=== PATIENT | male | born 1960 | race Caucasian/White ===

== ENCOUNTER → 2016-11-11 | Outpatient (REF) | payer OTHER ==
[2016-11-11 12:32] LABS: ALBUMIN/GLOBULIN RATIO 1.38 (1.00-1.93); ALKALINE PHOSPHATASE 79 U/L (45-117); ALT/SGPT 47 U/L (12-78); ANION GAP 8 MEQ/L (8-16); AST/SGOT 23 U/L (15-37); BILIRUBIN,TOTAL 0.7 MG/DL (0.2-1.0); BLOOD UREA NITROGEN 18 MG/DL (7-18); CALCIUM LEVEL 9.3 MG/DL (8.5-10.1); CARBON DIOXIDE LEVEL 29 MEQ/L (21-32); CHLORIDE LEVEL 105 MEQ/L (98-107); CHOLESTEROL LEVEL 176 MG/DL (<200); CREATININE FOR GFR 0.97 MG/DL (0.70-1.30); GLOMERULAR FILTRATION RATE > 60.0 (>56); GLUCOSE, FASTING 91 MG/DL (70-105); POTASSIUM SERUM 4.8 MEQ/L (3.5-5.1); SODIUM LEVEL 142 MEQ/L (136-145); TOTAL PROTEIN 6.9 GM/DL (6.4-8.2); TRIGLYCERIDES LEVEL 69 MG/DL (<150)
== END ==
LOC: M SFHCPLAZ 07:55
PROVIDERS: ATTEND Family Medicine
DX: E78.5 Hyperlipidemia, unspecified (principal); R73.01 Impaired fasting glucose

== ENCOUNTER → 2017-04-04 | Outpatient (REF) | payer OTHER ==
[2017-04-04 11:59] LABS: BASO % 0.8 % (0.0-1.0); EOS # 0.1 K/mm3 (0.0-0.50); LARGE UNSTAINED CELL # 0.1 K/mm3 (0.0-0.4); LARGE UNSTAINED CELL % 1.9 % (0.0-4.0); LYMPH # 1.3 K/mm3 (1.5-4.5); LYMPH % 31.9 % (24.0-44.0); MEAN CORPUSCULAR HEMOGLOBIN 31.3 pg (27.0-33.0); MEAN CORPUSCULAR HGB CONC 32.8 g/dl (32.0-36.5); MEAN CORPUSCULAR VOLUME 95.5 fl (80.0-96.0); MONO # 0.3 K/mm3 (0.0-0.8); MONO % 8.1 % (0.0-5.0); NEUTROPHILS # 2.2 K/mm3 (1.8-7.7); NEUTROPHILS % 55.3 % (36.0-66.0); PLATELET COUNT, AUTOMATED 299 k/mm3 (150-450); RED CELL DISTRIBUTION WIDTH 12.9 % (11.5-14.5)
[2017-04-04 12:24] LABS: ALBUMIN 3.9 GM/DL (3.2-5.2); ALKALINE PHOSPHATASE 83 U/L (45-117); ALT/SGPT 47 U/L (12-78); ANION GAP 7 MEQ/L (8-16); AST/SGOT 24 U/L (15-37); BILIRUBIN,TOTAL 0.6 MG/DL (0.2-1.0); BLOOD UREA NITROGEN 16 MG/DL (7-18); CALCIUM LEVEL 8.8 MG/DL (8.5-10.1); CARBON DIOXIDE LEVEL 28 MEQ/L (21-32); CHLORIDE LEVEL 107 MEQ/L (98-107); CREATININE FOR GFR 0.88 MG/DL (0.70-1.30); GLOMERULAR FILTRATION RATE > 60.0 (>56); GLUCOSE, FASTING 109 MG/DL (70-105); MAGNESIUM LEVEL 2.4 MG/DL (1.8-2.4); POTASSIUM SERUM 4.7 MEQ/L (3.5-5.1); SODIUM LEVEL 142 MEQ/L (136-145); TOTAL PROTEIN 6.9 GM/DL (6.4-8.2)
== END ==
LOC: M SFHCPLAZ 08:29
PROVIDERS: ATTEND Family Medicine
DX: I10 Essential (primary) hypertension (principal); R73.01 Impaired fasting glucose; Z12.5 Encounter for screening for malignant neoplasm of prostate
CPT/HCPCS: 36415; 80053; 81001; 82043; 83036; 83735; 85025; G0103

== ENCOUNTER → 2018-01-04 | Outpatient (REF) | payer OTHER ==
[2018-01-04 12:40] LABS: BASO % 0.6 % (0.0-1.0); EOS # 0.1 10^3/uL (0.0-0.50); EOS % 1.5 % (0.0-3.0); HEMATOCRIT 42.6 % (42.0-52.0); HEMOGLOBIN 14.1 g/dl (13.5-17.5); IMMATURE GRANULOCYTE % 0.2 % (0-3.0); LYMPH # 1.5 10^3/uL (1.5-4.5); LYMPH % 29.7 % (24.0-44.0); MEAN CORPUSCULAR HEMOGLOBIN 30.5 pg (27.0-33.0); MEAN CORPUSCULAR HGB CONC 33.1 g/dl (32.0-36.5); MONO # 0.5 10^3/uL (0.0-0.8); MONO % 9.8 % (0.0-5.0); NEUTROPHILS % 58.2 % (36.0-66.0); PLATELET COUNT, AUTOMATED 304 10^3/uL (150-450); RED BLOOD COUNT 4.63 10^6/uL (4.30-6.10); RED CELL DISTRIBUTION WIDTH 12.9 % (11.5-14.5); WHITE BLOOD COUNT 5.2 10^3/uL (4.0-10.0)
[2018-01-04 12:44] LABS: HEMATOCRIT 42.6 % (42.0-52.0)
[2018-01-04 12:59] LABS: ALBUMIN 4.1 GM/DL (3.2-5.2); ALBUMIN/GLOBULIN RATIO 1.41 (1.00-1.93); ALKALINE PHOSPHATASE 71 U/L (45-117); ALT/SGPT 42 U/L (12-78); ANION GAP 7 MEQ/L (8-16); AST/SGOT 21 U/L (7-37); BILIRUBIN,TOTAL 0.7 MG/DL (0.2-1.0); BLOOD UREA NITROGEN 15 MG/DL (7-18); CARBON DIOXIDE LEVEL 28 MEQ/L (21-32); CHLORIDE LEVEL 103 MEQ/L (98-107); CREATININE FOR GFR 0.91 MG/DL (0.70-1.30); GLOMERULAR FILTRATION RATE > 60.0 (>56); GLUCOSE, FASTING 79 MG/DL (70-100); POTASSIUM SERUM 4.4 MEQ/L (3.5-5.1); SODIUM LEVEL 138 MEQ/L (136-145)
[2018-01-04 13:01] LABS: VITAMIN B12 LEVEL 531 PG/ML (247-911)
[2018-01-04 13:57] LABS: ESTIMATED AVERAGE GLUCOSE 111 MG/DL (60-110); HEMOGLOBIN A1c 5.5 %
[2018-01-06 10:59] LABS: ALBUMIN % 62.8 % (55.8-66.1); ALPHA-1-GLOBULIN % 4.1 % (2.9-4.9); ALPHA-1-GLOBULINS 0.29 GM/DL (0.17-0.41); ALPHA-2-GLOBULINS 0.71 GM/DL (0.42-0.99); ALPHA-2-GLOBULINS % 10.2 % (7.1-11.8); BETA-1-GLOBULINS 0.48 GM/DL (0.28-0.60); BETA-1-GLOBULINS % 6.8 % (4.7-7.2); BETA-2-GLOBULINS 0.41 GM/DL (0.19-0.55); BETA-2-GLOBULINS % 5.8 % (3.2-6.5); GAMMA GLOBULIN % 10.3 % (11.1-18.8); GAMMA GLOBULINS 0.72 GM/DL (0.65-1.58)
[2018-01-06 12:06] LABS: PRETREATED FOLATE FOR RBCFOL 10.6 NG/ML; RBC FOLATE 522.5 NG/ML (280-791)
== END ==
LOC: M SFHCPLAZ 09:21
DX: D75.89 Other specified diseases of blood and blood-forming organs (principal); I10 Essential (primary) hypertension; R73.01 Impaired fasting glucose
CPT/HCPCS: 83735

== ENCOUNTER 2018-03-06 07:47 | Day surgery (SDC) | payer OTHER ==
[2018-03-06] MEDS: NS 1,000 ML IV (08:00)
[2018-03-06] MEDS ORDERED: PROPOFOL 500 MG/50 ML VIAL As Ordered (10:07)
[2018-03-06] MEDS ORDERED: LIDOCAINE 2% INJ 100 MG/5 ML SDV (FOR ANES.) As Ordered (10:07)
== END 2018-03-06 10:08 | disposition home or self-care (01) ==
LOC: M OPP 07:47
DX: Z12.11 Encounter for screening for malignant neoplasm of colon (principal); K64.0 First degree hemorrhoids; K63.5 Polyp of colon; K57.30 Diverticulosis of large intestine without perforation or abscess without bleeding; I10 Essential (primary) hypertension; E78.00 Pure hypercholesterolemia, unspecified; M50.20 Other cervical disc displacement, unspecified cervical region; Z79.899 Other long term (current) drug therapy; Z88.8 Allergy status to other drugs, medicaments and biological substances
CPT/HCPCS: 45385

== ENCOUNTER → 2018-07-17 | Outpatient (REF) | payer OTHER ==
[2018-07-17 12:50] LABS: ALBUMIN 3.8 GM/DL (3.2-5.2); ALBUMIN/GLOBULIN RATIO 1.36 (1.00-1.93); ALKALINE PHOSPHATASE 68 U/L (45-117); ALT/SGPT 41 U/L (12-78); ANION GAP 6 MEQ/L (8-16); AST/SGOT 18 U/L (7-37); BILIRUBIN,TOTAL 0.6 MG/DL (0.2-1.0); BLOOD UREA NITROGEN 20 MG/DL (7-18); C REACTIVE PROTEIN QUANTITATIV < 0.30 MG/DL (0.00-0.30); CALCIUM LEVEL 8.9 MG/DL (8.8-10.2); CARBON DIOXIDE LEVEL 29 MEQ/L (21-32); CHLORIDE LEVEL 103 MEQ/L (98-107); CHOLESTEROL LEVEL 188 MG/DL (<200); CHOLESTEROL RISK RATIO 2.848 (<5); CPK CREATINE PHOSPHOKINASE 60 U/L (39-308); CREATININE FOR GFR 0.84 MG/DL (0.70-1.30); FREE T4 0.91 NG/DL (0.76-1.46); GLOMERULAR FILTRATION RATE > 60.0 (>49); GLUCOSE, FASTING 93 MG/DL (70-100); HDL CHOLESTEROL 66 MG/DL (>40); LDL CHOLESTEROL 107 MG/DL (<100); NON-HDL-C 122 MG/DL; POTASSIUM SERUM 4.7 MEQ/L (3.5-5.1); PSA SCREENING 1.2 NG/ML (< 4.0); SODIUM LEVEL 138 MEQ/L (136-145); TOTAL PROTEIN 6.6 GM/DL (6.4-8.2); TRIGLYCERIDES LEVEL 73 MG/DL (<150)
== END ==
LOC: M SFHCPLAZ 08:19
DX: E78.5 Hyperlipidemia, unspecified (principal); Z12.5 Encounter for screening for malignant neoplasm of prostate
CPT/HCPCS: 82550

== ENCOUNTER → 2018-09-08 | Outpatient (CLI) | payer OTHER ==
[~2018-09-08] MED LIST: ATOR80TA59 PO; RAMI1CAP24 PO
--- NOTE | 2018-09-08 11:23 | REP ---
MR CERVICAL SPINE WITHOUT CONTRAST: HISTORY: Radiculopathy. A small central disc protrusion is present at the C2-3 level. There is minimal effacement of the thecal sac without spinal cord compression. The C2 neural foramina are patent. A disc bulge is present at the C3-4 level. There is mild effacement of the thecal sac without spinal cord compression. Uncinate process hypertrophy is present on the right. This produces minimal narrowing of the right C3 neural foramen. The left C3 neural foramen is patent. A disc bulge is present at the C4-5 level. There is mild effacement of the thecal sac without spinal cord compression. Uncinate process hypertrophy is present on the right. This produces minimal narrowing of the right C4 neural foramen. The left C4 neural foramina is patent. A disc bulge with associated osteophyte formation is present at the C5-6 level. There is moderate effacement of the thecal sac without spinal cord compression. Bilateral uncinate process hypertrophy is present. This produces mild and moderate narrowing of the right and left C5 neural foramina respectively. A disc bulge with associated osteophyte formation is present at the C6-7 level. There is moderate effacement of the thecal sac without spinal cord compression. Bilateral uncinate process hypertrophy is present. This produces moderate narrowing of the C6 neural foramina. There is no other disc bulge or herniation. The remaining neural foramina are patent. The spinal cord is normal in signal intensity. The C4-5 and C5-6 intervertebral discs are decreased in height consistent with disc degeneration. Increased signal intensity on T2-weighted images is present in the endplates of the C5 and C6 vertebral bodies. This represents degenerative change. IMPRESSION: There is cervical spondylosis at the C2-3 through C6-7 levels without spinal cord compression. Electronically Signed by Hamzah Gerard MD 09/08/2018 11:26 A
== END ==
LOC: M RAD 07:09
PROVIDERS: ATTEND Nurse Practitioner Family
DX: M47.22 Other spondylosis with radiculopathy, cervical region (principal)

== ENCOUNTER → 2018-12-26 | Outpatient (REF) | payer OTHER ==
[2018-12-26 13:13] LABS: BASO % 0.9 % (0.0-1.0); EOS # 0.1 10^3/uL (0.0-0.50); EOS % 1.6 % (0.0-3.0); HEMATOCRIT 46.9 % (42.0-52.0); HEMOGLOBIN 15.5 g/dl (13.5-17.5); LYMPH # 1.5 10^3/uL (1.5-4.5); MEAN CORPUSCULAR HEMOGLOBIN 30.2 pg (27.0-33.0); MEAN CORPUSCULAR VOLUME 91.2 fl (80.0-96.0); MONO # 0.4 10^3/uL (0.0-0.8); MONO % 9.6 % (0.0-5.0); NEUTROPHILS # 2.5 10^3/uL (1.8-7.7); NEUTROPHILS % 54.7 % (36.0-66.0); PLATELET COUNT, AUTOMATED 340 10^3/uL (150-450); RED BLOOD COUNT 5.14 10^6/uL (4.30-6.10); WHITE BLOOD COUNT 4.5 10^3/uL (4.0-10.0)
[2018-12-26 13:26] LABS: HEMOGLOBIN A1c 5.7 %
[2018-12-26 14:25] LABS: CREATININE, URINE 87.8 MG/DL; MALB URINE SIEMENS 59.1 MG/L; MAU/CREAT RATIO 67.3 MCG/MG (0.0-30.0)
[2018-12-26 14:26] LABS: ALBUMIN 4.1 GM/DL (3.2-5.2); ALT/SGPT 45 U/L (12-78); BILIRUBIN,TOTAL 0.7 MG/DL (0.2-1.0); BLOOD UREA NITROGEN 22 MG/DL (7-18); CARBON DIOXIDE LEVEL 27 MEQ/L (21-32); CHLORIDE LEVEL 104 MEQ/L (98-107); CREATININE FOR GFR 0.95 MG/DL (0.70-1.30); GLOMERULAR FILTRATION RATE > 60.0 (>49); GLUCOSE, FASTING 86 MG/DL (70-100); POTASSIUM SERUM 4.5 MEQ/L (3.5-5.1); SODIUM LEVEL 139 MEQ/L (136-145); TOTAL PROTEIN 7.5 GM/DL (6.4-8.2); URIC ACID 6.5 MG/DL (3.5-7.2)
[2018-12-26 14:34] LABS: APPEARANCE, URINE CLEAR (CLEAR); BACTERIA, URINE AUTO NEGATIVE (NEGATIVE); BILIRUBIN, URINE AUTO NEGATIVE (NEGATIVE); BLOOD, URINE BLOOD NEGATIVE (NEGATIVE); COLOR, URINE YELLOW (YELLOW); GLUCOSE, URINE (UA) AUTO NEGATIVE (NEGATIVE); KETONE, URINE AUTO NEGATIVE (NEGATIVE); LEUKOCYTE ESTERASE, URINE AUTO NEGATIVE (NEGATIVE); MUCUS, URINE SMALL (NEGATIVE); NITRITE, URINE AUTO NEGATIVE (NEGATIVE); PROTEIN, URINE AUTO NEGATIVE (NEGATIVE); RBC, URINE AUTO 0 /HPF (0-3); SPECIFIC GRAVITY URINE AUTO 1.015 (1.002-1.035); SQUAMOUS EPITHELIAL CELL UR AU 0 /HPF (0-6); UROBILINOGEN, URINE AUTO 0.2 mg/dL (0.0-2.0); WBC, URINE AUTO 0 /HPF (0-3)
== END ==
LOC: M SFHCPLAZ 09:51
PROVIDERS: ATTEND Family Medicine
DX: D75.89 Other specified diseases of blood and blood-forming organs (principal); R73.01 Impaired fasting glucose; M19.079 Primary osteoarthritis, unspecified ankle and foot
CPT/HCPCS: 80053; 81001; 82043; 83036; 83525; 84550; 85025; G0463

== ENCOUNTER → 2019-07-12 | Outpatient (REF) | payer OTHER ==
[2019-07-12 12:06] LABS: ALBUMIN 3.7 GM/DL (3.2-5.2); ALT/SGPT 35 U/L (12-78); BILIRUBIN,TOTAL 0.5 MG/DL (0.2-1.0); BLOOD UREA NITROGEN 13 MG/DL (7-18); CALCIUM LEVEL 8.9 MG/DL (8.8-10.2); CARBON DIOXIDE LEVEL 28 MEQ/L (21-32); CHLORIDE LEVEL 108 MEQ/L (98-107); CHOLESTEROL LEVEL 185 MG/DL (<200); CREATININE FOR GFR 0.91 MG/DL (0.70-1.30); GLOMERULAR FILTRATION RATE > 60.0 (>49); GLUCOSE, FASTING 94 MG/DL (70-100); HDL CHOLESTEROL 64 MG/DL (>40); LDL CHOLESTEROL 113 MG/DL (<100); NON-HDL-C 121 MG/DL; POTASSIUM SERUM 4.7 MEQ/L (3.5-5.1); SODIUM LEVEL 143 MEQ/L (136-145); TOTAL PROTEIN 6.7 GM/DL (6.4-8.2); TRIGLYCERIDES LEVEL 40 MG/DL (<150)
[2019-07-12 12:39] LABS: TOTAL PROTEIN,RANDOM URINE 19.7 MG/DL (0.0-12.0)
[2019-07-12 13:23] LABS: TOTAL 25(OH) VITAMIN D 38.5 NG/ML (30.0-100.0)
[2019-07-12 13:36] LABS: PTH INTACT 66.7 PG/ML (18.5-88.0)
[2019-07-12 14:09] LABS: HEMOGLOBIN A1c 5.6 %
== END ==
LOC: M SFHCPLAZ 09:06
PROVIDERS: ATTEND Family Medicine
DX: Z12.5 Encounter for screening for malignant neoplasm of prostate (principal); E55.9 Vitamin D deficiency, unspecified; R73.01 Impaired fasting glucose; E78.5 Hyperlipidemia, unspecified
CPT/HCPCS: 36415; 80053; 80061; 82306; 82570; 83036; 83970; 84156; 90471; 90682; G0103; G0463

== ENCOUNTER → 2019-10-25 | Outpatient (REF) | payer OTHER ==
[~2019-10-25] MED LIST changes: +VITAD1000T PO
[2019-10-25 14:33] LABS: ALBUMIN 4.3 GM/DL (3.2-5.2); ALT/SGPT 51 U/L (12-78); BASO # 0.1 10^3/uL (0.0-0.2); BASO % 0.9 % (0.0-1.0); BILIRUBIN,TOTAL 0.5 MG/DL (0.2-1.0); BLOOD UREA NITROGEN 19 MG/DL (7-18); CALCIUM LEVEL 9.5 MG/DL (8.8-10.2); CARBON DIOXIDE LEVEL 31 MEQ/L (21-32); CHLORIDE LEVEL 106 MEQ/L (98-107); CREATININE FOR GFR 0.91 MG/DL (0.70-1.30); EOS # 0.1 10^3/uL (0.0-0.5); EOS % 1.2 % (0.0-3.0); GLOMERULAR FILTRATION RATE > 60.0 (>49); GLUCOSE, FASTING 93 MG/DL (70-100); HEMATOCRIT 49.6 % (42.0-52.0); HEMOGLOBIN 16.2 g/dl (13.5-17.5); LYMPH # 1.9 10^3/uL (1.5-5.0); LYMPH % 26.8 % (24.0-44.0); MEAN CORPUSCULAR HEMOGLOBIN 30.2 pg (27.0-33.0); MEAN CORPUSCULAR HGB CONC 32.7 g/dl (32.0-36.5); MEAN CORPUSCULAR VOLUME 92.5 fl (80.0-96.0); MONO # 0.6 10^3/uL (0.0-0.8); MONO % 8.5 % (0.0-5.0); NEUTROPHILS # 4.3 10^3/uL (1.5-8.5); NEUTROPHILS % 62.3 % (36.0-66.0); PLATELET COUNT, AUTOMATED 370 10^3/uL (150-450); POTASSIUM SERUM 5.1 MEQ/L (3.5-5.1); RED BLOOD COUNT 5.36 10^6/uL (4.30-6.10); SODIUM LEVEL 140 MEQ/L (136-145); TOTAL PROTEIN 7.6 GM/DL (6.4-8.2); WHITE BLOOD COUNT 6.9 10^3/uL (4.0-10.0)
[2019-10-25 14:40] LABS: PARTIAL THROMBOPLASTIN TIME 25.2 SECONDS (25.0-38.4); PROTHROMBIN TIME 12.9 SECONDS (11.8-14.0)
== END ==
LOC: M SFHCPLAZ 12:34
PROVIDERS: ATTEND Family Medicine
DX: Z01.818 Encounter for other preprocedural examination (principal); I10 Essential (primary) hypertension
CPT/HCPCS: 80053; 85025; 85610; 85730; G0463

== ENCOUNTER 2019-10-29 09:14 | Day surgery (SDC) | payer OTHER ==
[~2019-10-29] VITALS: Ht 175.3 cm; Wt 100.2 kg
[~2019-10-29 09:14] MED LIST changes: +LIDOCAINE 2% INJ 100 MG/5 ML SDV (FOR ANES.) As Ordered ONE; +LR 1,000 ML IV ONE; +MIDAZOLAM INJ 2 MG/2 ML VIAL (J2250) As Ordered ONE; +ONDANSETRON 4MG/2ML VIAL (J2405) As Ordered ONE; +ROCURONIUM BROMIDE 50 MG/5 ML VIAL As Ordered ONE; +ceFAZolin SOD 2 GM in IV 1 EA IV ONE; +dexameTHASONE 4 MG/ML 1ML VIAL (J1100) As Ordered ONE; +fentaNYL 100 MCG/2 ML INJECTION (J3010) As Ordered ONE; +propofoL 200 MG/20 ML VIAL As Ordered ONE
[2019-10-29] MEDS ORDERED: ROPIvacaine 0.5% 30 ML INJECTION (J2795 PER 1MG) ONE (09:15)
[2019-10-29] MEDS ORDERED: dexameTHASONE 10 MG/1 ML VIAL PRES.FREE (J1100) ONE (09:15)
[2019-10-29] MEDS ORDERED: LIDOCAINE 1% MDV 20ML VIAL ONE (09:15)
[2019-10-29] MEDS ORDERED: BUPIVACAINE HCL 0.5% 30 ML VIAL As Ordered ONE (13:10)
[2019-10-29] MEDS ORDERED: fentaNYL 100 MCG/2 ML INJECTION (J3010) As Ordered ONE ×3 (13:26→17:19)
[2019-10-29] MEDS ORDERED: MIDAZOLAM INJ 2 MG/2 ML VIAL (J2250) As Ordered ONE (13:26)
[2019-10-29] MEDS ORDERED: ESMOLOL INJ 100MG/10ML VIAL As Ordered ONE (13:46)
[2019-10-29] MEDS ORDERED: MIDAZOLAM INJ 2 MG/2 ML VIAL (J2250) IV ONE (14:00)
[2019-10-29] MEDS ORDERED: fentaNYL 100 MCG/2 ML INJECTION (J3010) IV ONE (14:00)
[2019-10-29] MEDS ORDERED: PHENYLephrine HCL 500 MCG/5 ML (100MCG/ML) SYRINGE (J2370) As Ordered ONE (15:58)
[2019-10-29] MEDS ORDERED: SUGAMMADEX SODIUM 500 MG/5 ML VIAL (BRIDION) As Ordered ONE (16:01)
[2019-10-29] MEDS ORDERED: ROCURONIUM BROMIDE 50 MG/5 ML VIAL As Ordered ONE (16:12)
[2019-10-29] MEDS ORDERED: ACETAMINOPHEN 1000MG 100ML IV BTL (OFIRMEV) (J0131 PER 10MG) As Ordered ONE (16:14)
[2019-10-29] MEDS ORDERED: ePHEDrine SULFATE 25 MG/5 ML(5MG/ML) SYRINGE As Ordered ONE (16:48)
[2019-10-29] MEDS ORDERED: oxyCODONE 5MG TAB PO PRN (18:30)
[2019-10-29] MEDS ORDERED: fentaNYL 100 MCG/2 ML INJECTION (J3010) IV PRN (18:30)
[2019-10-29] MEDS ORDERED: HYDROMORPHONE HCL 0.5 MG/ 0.5 ML SYRINGE (J1170 PER 1) IV PRN (18:30)
[2019-10-29] MEDS ORDERED: LR 1,000 ML IV SCH ×2 (18:30)
[2019-10-29] MEDS ORDERED: ONDANSETRON 4MG/2ML VIAL (J2405) IV PRN (18:30)
[2019-10-29 19:00] VITALS: BP 130/88
--- NOTE | 2019-10-30 10:16 | REP ---
RIGHT FOOT: Limited study four views. HISTORY: Intraoperative imaging. 31 seconds of fluoroscopy time is reported. FINDINGS: A sequence of four last image hold fluoroscopically obtained radiographs of the right foot document arthrodesis of the 1st MTP joint. Electronically Signed by Jose Godinez MD 10/30/2019 12:52 P
--- NOTE | 2019-10-30 15:11 | RO ---
DATE OF PROCEDURE: 10/29/2019 PREPROCEDURE DIAGNOSIS: Right hallux rigidus POSTPROCEDURE DIAGNOSIS: Right hallux rigidus. PROCEDURE: 1. Right first metatarsophalangeal joint arthrodesis. 2. Right calcaneal bone graft, 3. Use of right mini C-arm. SURGEON: Dr. Sabina Rocha ENVIRONMENTAL SERVICES AIDE: LORI Dumont. ANESTHESIA: General endotracheal and popliteal nerve block. ESTIMATED BLOOD LOSS: 25 mL. COMPLICATIONS: None. CONDITION: Stable to recovery. INDICATION: Maritza Valles is a 59-year-old male with longstanding pain from right hallux rigidus. He has failed conservative measures. Risks and benefits of right 1st MTP fusion were discussed with the patient in detail and include but were not limited to infection, damage to nerves and blood vessels, continued pain and stiffness, need for additional procedures. Informed consent was obtained in the office DESCRIPTION OF PROCEDURE: The patient was met in the preoperative holding area where his right lower extremity was marked as the correct operative site. He was then taken to the operating room where he underwent general anesthesia. A well padded tourniquet was placed on the right upper thigh. Right lower extremity was prepped and draped in the normal sterile fashion. He was then prepped and draped in the normal sterile fashion. Antibiotics were given less than 60 minutes prior to incision. An official time-out was held where the correct patient, operative site and operative procedure were verified. An Esmarch tourniquet was used to exsanguinate the leg and the tourniquet was inflated to 250 mmHg. An incision was made directly over the first metatarsophalangeal joint. The EHL tendon was retracted laterally. The capsule was incised. There was significant osteoarthritis with 100% cartilage loss over the dorsal two-thirds of the metatarsal head. There was some small area of remaining cartilage plantarly. There was cartilage thinning throughout the phalanx as well. All remaining cartilage was removed using a series of rongeur and curettes. I then drilled to the access of subchondral bone using a 0.062 K wire. Furthermore, I used an osteotomy to further fish scale the joint. Copious irrigation was then performed. An incision was then made over the lateral aspect of the calcaneal tuberosity. Snap was used to dissect to the level of the bone. A 4.0 drill sleeve was used to gain calcaneal bone graft. This was later irrigated and closed with 3-0 Vicryl and 3-0 nylon. A small amount of the bone graft and DBM putty was placed in the joint. Following this, the joint was pinned in place with approximately 10 degrees of dorsiflexion and 10 degrees of valgus. A 3-0 lag screw was placed across the joint. Following this, a plate was used and secured distally using locking screws. I then compressed through the plate using an screw. Following this, the plate was further secured using two more locking screws. X-rays were performed in AP, oblique, and lateral views and found to be satisfactory in terms of joint compression, hardware placement and toe position. I then put the remaining bone graft over the remaining visible portions of the joint with DBM putty. The capsule was closed with 2-0 Vicryl. Skin was closed using 3-0 Vicryl and a 3-0 running nylon. The patient was placed into a well padded splint. He was extubated and transferred to the recovery room in stable condition. LORI Montes was present for the entire case and was essential for soft tissue retraction, hardware placement and overall decrease in tourniquet time. PLAN: The patient will be non-weightbearing in the right lower extremity for 6 weeks. He will be seen back in 2 weeks for splint change and suture removal. He will be on aspirin for deep vein thrombosis (DVT) prophylaxis.
== END 2019-10-29 19:32 | disposition home or self-care (01) ==
LOC: M SDC 09:14
PROVIDERS: ATTEND Orthopaedic Surgery
DX: M20.21 Hallux rigidus, right foot (principal); I10 Essential (primary) hypertension; E78.5 Hyperlipidemia, unspecified; D75.89 Other specified diseases of blood and blood-forming organs; R73.01 Impaired fasting glucose; M19.071 Primary osteoarthritis, right ankle and foot; M47.22 Other spondylosis with radiculopathy, cervical region; L40.0 Psoriasis vulgaris; H93.19 Tinnitus, unspecified ear; R21 Rash and other nonspecific skin eruption; Z88.2 Allergy status to sulfonamides; Z79.899 Other long term (current) drug therapy; Z79.82 Long term (current) use of aspirin
CPT/HCPCS: 20900; 28750; 76000; C1713; C1762; J0131; J0690; J1100; J2250; J2370; J2405; J2795; J3010

== ENCOUNTER → 2020-05-03 | Outpatient (CLI) | payer OTHER ==
[~2020-05-03] MED LIST changes: +D31000TA2 PO; -LIDOCAINE 2% INJ 100 MG/5 ML SDV (FOR ANES.) As Ordered ONE; -LR 1,000 ML IV ONE; -MIDAZOLAM INJ 2 MG/2 ML VIAL (J2250) As Ordered ONE; -ONDANSETRON 4MG/2ML VIAL (J2405) As Ordered ONE; -ROCURONIUM BROMIDE 50 MG/5 ML VIAL As Ordered ONE; -VITAD1000T PO; -ceFAZolin SOD 2 GM in IV 1 EA IV ONE; -dexameTHASONE 4 MG/ML 1ML VIAL (J1100) As Ordered ONE; -fentaNYL 100 MCG/2 ML INJECTION (J3010) As Ordered ONE; -propofoL 200 MG/20 ML VIAL As Ordered ONE
== END ==
LOC: M LABSMTC 09:13
PROVIDERS: ATTEND Anesthesiology
DX: Z01.812 Encounter for preprocedural laboratory examination (principal); Z20.828 Contact with and (suspected) exposure to other viral communicable diseases
CPT/HCPCS: C9803; U0003

== ENCOUNTER 2020-05-08 12:59 | Day surgery (SDC) | payer OTHER ==
[~2020-05-08] VITALS: Ht 175.3 cm; Wt 98.4 kg
[~2020-05-08 12:59] MED LIST changes: +LR 1,000 ML IV ONE
[2020-05-08] MEDS ORDERED: LIDOCAINE 1% MDV 20ML VIAL ONE (13:00)
[2020-05-08] MEDS ORDERED: ROPIvacaine 0.5% 30ML INJECTION (J2795 PER 1MG) ONE (13:00)
[2020-05-08] MEDS ORDERED: EPINEPHrine INJ 1 MG/ML 1ML AMP ONE (13:00)
[2020-05-08] MEDS ORDERED: ceFAZolin 2 GM/D5W 50 ML IV BAG (J0690 PER 500MG) As Ordered ONE (13:52)
[2020-05-08] MEDS ORDERED: MIDAZOLAM INJ 2MG/2ML VIAL (J2250 PER 1MG) As Ordered ONE ×2 (15:25→15:52)
[2020-05-08] MEDS ORDERED: fentaNYL 100 MCG/2 ML INJECTION (J3010) As Ordered ONE (15:25)
[2020-05-08] MEDS ORDERED: ROCURONIUM BROMIDE 50 MG/5 ML VIAL As Ordered ONE (15:52)
[2020-05-08] MEDS ORDERED: LIDOCAINE 2% 100MG/5ML SDV (FOR ANES.) As Ordered ONE (15:52)
[2020-05-08] MEDS ORDERED: fentaNYL 250 MCG/5 ML INJECTION (J3010) As Ordered ONE (15:52)
[2020-05-08] MEDS ORDERED: propofoL 200 MG/20 ML VIAL As Ordered ONE (15:52)
[2020-05-08] MEDS ORDERED: PHENYLephrine HCL 500 MCG/5 ML (100MCG/ML) SYRINGE (J2370) As Ordered ONE (17:04)
[2020-05-08] MEDS ORDERED: ePHEDrine SULFATE 25 MG/5 ML(5MG/ML) SYRINGE As Ordered ONE (17:21)
[2020-05-08] MEDS ORDERED: dexameTHASONE 4 MG/ML 1ML VIAL (J1100 PER 1MG) As Ordered ONE (17:25)
[2020-05-08] MEDS ORDERED: KETOROLAC 60MG 2ML VIAL As Ordered ONE (17:25)
[2020-05-08] MEDS ORDERED: ONDANSETRON 4MG/2ML VIAL As Ordered ONE (17:25)
[2020-05-08] MEDS ORDERED: DESFLURANE 240 ML INHALANT As Ordered ONE (17:34)
[2020-05-08] MEDS ORDERED: HYDROmorphone HCL 2 MG/ML 1ML VIAL (J1170) As Ordered ONE (18:08)
[2020-05-08] MEDS ORDERED: SUGAMMADEX SODIUM 500 MG/5 ML VIAL (BRIDION) As Ordered ONE (18:41)
[2020-05-08] MEDS ORDERED: MIDAZOLAM INJ 2MG/2ML VIAL (J2250 PER 1MG) IV PRN (19:30)
[2020-05-08] MEDS ORDERED: fentaNYL 100 MCG/2 ML INJECTION (J3010) IV PRN ×2 (19:30)
[2020-05-08] MEDS ORDERED: METOCLOPRAMIDE INJ 10MG/2ML VIAL (J2765 PER 1) IV PRN (19:30)
[2020-05-08] MEDS ORDERED: LR 1,000 ML IV SCH ×2 (19:30→19:45)
[2020-05-08] MEDS ORDERED: PERCOCET 5MG/325MG TAB PO PRN (19:30)
[2020-05-08] MEDS ORDERED: ONDANSETRON 4MG/2ML VIAL IV PRN (19:30)
[2020-05-08 20:25] VITALS: BP 131/76
--- NOTE | 2020-05-22 17:24 | REP ---
LEFT GREAT TOE: INTRAOPERATIVE IMAGING HISTORY: Left hallux rigidus. FLUOROSCOPY TIME: 56 seconds reported FINDINGS: A sequence of 9 [id number] fluoroscopically obtained spot radiographs of the forefoot document first metatarsophalangeal joint arthrodesis procedure. No laterality markers are visible. MTDD
--- NOTE | 2020-05-26 08:55 | RO ---
DATE OF PROCEDURE: 05/08/20 PREOPERATIVE DIAGNOSIS: Left hallux rigidus. POSTOPERATIVE DIAGNOSIS: Left hallux rigidus. PROCEDURES: * Left 1st metatarsophalangeal joint arthrodesis. * Left calcaneal bone graft. SURGEON: Sabina Rocha MD ASSIST: LORI Montes ANESTHESIA: General endotracheal with popliteal nerve block. EBL: 25 mL. IMPLANTS: Arthrex 1st MTP fusion plate with associated screws. COMPLICATIONS: None. CONDITION: Stable to recovery. INDICATIONS: The patient is a 60-year-old male with longstanding pain due to advanced left hallux rigidus. He has failed conservative measures. Risks and benefits of surgery were discussed with the patient in detail including but not limited to infection, damage to nerves and blood vessels, continued pain and stiffness, need for additional procedures. Informed consent was obtained. PROCEDURE: The patient was met in the preoperative holding area where his left lower extremity was marked as the correct operative side. He was taken to the operating room where he was placed in the supine position on the operating room table. Bony prominences were well padded. A well padded tourniquet was placed on the left upper thigh. Antibiotics were given within 60 minutes prior to incision. Left lower extremity was prepped and draped in normal sterile incision. An official time out was held where the correct patient, operative side and operative procedure were verified. An incision was made directly over the 1st MTP joint. The EHL tendon was retracted. Capsule was incised. There was significant arthritis throughout the MTP joint. Any remaining cartilage was debrided with curettes. Osteophytes were removed with rongeurs. Subchondral bone was drilled with 0.062 K-wire. Copious irrigation was performed. Franchesca osteotome was further used to fish scale the joint. At this point incision was turned to the lateral heel. Small incision was made over the lateral aspect of the calcaneal tuberosity. Careful dissection to the level of the bone was performed. Using 4.0 drill sleeve I gained access to the calcaneus and obtained bone graft. Part of this was then placed into the MTP joint. The joint was then reduced and pinned in place. X-rays confirmed adequate reduction. 3.5 mm lag screw was used. I then placed a standard Arthrex locking plate. Placement of the plate was confirmed on AP x-ray. I did use the large C- arm for this case as mini C-arm was not available. Plate was secured distally with locking screws. I then gained compression with Eccentric screw distally. Following this two more locking screws were placed distally. There was good compression across the joint. X-rays in AP, oblique and lateral view were all satisfactory. Again, there was good compression across the joint and satisfactory hardware placement. At this point two troughs were drilled with bur on either side of the plate. I filled in these troughs with remaining bone graft. The capsule was closed with 2-0 Vicryl. Subcutaneous tissues were closed with 3-0 Vicryl. Skin was closed with 3-0 nylon. Well padded sterile dressing was applied. Well padded splint was applied. The patient was extubated and transferred to the recovery room in stable condition. LORI Montes was present for the entire case and was essential for soft tissue retraction, hardware placement, soft tissue closure and overall decrease in tourniquet time. PLAN: The patient will be nonweightbearing on left lower extremity for 6 weeks. He will be on Aspirin for DVT prophylaxis. I will see him in 2 weeks for suture removal and placement into a boot. TYLER
== END 2020-05-08 20:25 | disposition home or self-care (01) ==
LOC: M SDC 12:59
PROVIDERS: ATTEND Orthopaedic Surgery
DX: M20.22 Hallux rigidus, left foot (principal); E78.5 Hyperlipidemia, unspecified; I10 Essential (primary) hypertension; M50.022 Cervical disc disorder at C5-C6 level with myelopathy
CPT/HCPCS: 20900; 28289; 76000; C1713; C1762; J0171; J0690; J1100; J1170; J1885; J2250; J2370; J2405; J2795; J3010

== ENCOUNTER → 2020-07-14 | Outpatient (REF) | payer OTHER ==
[~2020-07-14] MED LIST changes: -LR 1,000 ML IV ONE
[2020-07-14 13:50] LABS: APPEARANCE, URINE CLEAR (CLEAR); BACTERIA, URINE AUTO NEGATIVE (NEGATIVE); BILIRUBIN, URINE AUTO NEGATIVE (NEGATIVE); BLOOD, URINE BLOOD NEGATIVE (NEGATIVE); CALCIUM OXALATE CRYSTALS SMALL; COLOR, URINE YELLOW (YELLOW); GLUCOSE, URINE (UA) AUTO NEGATIVE (NEGATIVE); KETONE, URINE AUTO NEGATIVE (NEGATIVE); LEUKOCYTE ESTERASE, URINE AUTO NEGATIVE (NEGATIVE); MUCUS, URINE SMALL (NEGATIVE); NITRITE, URINE AUTO NEGATIVE (NEGATIVE); PROTEIN, URINE AUTO NEGATIVE (NEGATIVE); RBC, URINE AUTO 1 /HPF (0-3); SPECIFIC GRAVITY URINE AUTO 1.021 (1.002-1.035); SQUAMOUS EPITHELIAL CELL UR AU 0 /HPF (0-6); UROBILINOGEN, URINE AUTO 0.2 mg/dL (0.0-2.0); WBC, URINE AUTO 1 /HPF (0-3)
[2020-07-14 13:55] LABS: HEMOGLOBIN A1c 5.5 %
[2020-07-14 16:07] LABS: MAU/CREAT RATIO 71.6 MCG/MG (0.0-30.0)
[2020-07-14 16:08] LABS: ALBUMIN 3.9 GM/DL (3.2-5.2); ALT/SGPT 35 U/L (12-78); BILIRUBIN,TOTAL 0.4 MG/DL (0.2-1.0); BLOOD UREA NITROGEN 14 MG/DL (7-18); CALCIUM LEVEL 9.5 MG/DL (8.8-10.2); CARBON DIOXIDE LEVEL 31 MEQ/L (21-32); CHLORIDE LEVEL 106 MEQ/L (98-107); CHOLESTEROL LEVEL 184 MG/DL (<200); CHOLESTEROL RISK RATIO 3.016 (<5); CREATININE FOR GFR 0.87 MG/DL (0.70-1.30); GLOMERULAR FILTRATION RATE > 60.0 (>49); GLUCOSE, FASTING 97 MG/DL (70-100); HDL CHOLESTEROL 61 MG/DL (>40); LDL CHOLESTEROL 108 MG/DL (<100); NON-HDL-C 123 MG/DL; POTASSIUM SERUM 5.1 MEQ/L (3.5-5.1); SODIUM LEVEL 141 MEQ/L (136-145); TRIGLYCERIDES LEVEL 74 MG/DL (<150)
== END ==
LOC: M PLALAB 09:21
PROVIDERS: ATTEND Family Medicine
DX: R73.01 Impaired fasting glucose (principal); E78.5 Hyperlipidemia, unspecified; E55.9 Vitamin D deficiency, unspecified
CPT/HCPCS: 36415; 80053; 80061; 81001; 82043; 83036; 83525; 86140; G0103; G0463

== ENCOUNTER → 2020-12-26 | Outpatient (REF) | payer OTHER ==
[2020-12-26 12:36] LABS: BASO # 0.1 10^3/uL (0.0-0.2); BASO % 0.9 % (0.0-1.0); EOS # 0.1 10^3/uL (0.0-0.5); EOS % 2.4 % (0.0-3.0); HEMATOCRIT 47.1 % (42.0-52.0); HEMOGLOBIN 15.4 g/dl (13.5-17.5); LYMPH # 1.5 10^3/uL (1.5-5.0); MEAN CORPUSCULAR HEMOGLOBIN 30.2 pg (27.0-33.0); MEAN CORPUSCULAR HGB CONC 32.7 g/dl (32.0-36.5); MEAN CORPUSCULAR VOLUME 92.4 fl (80.0-96.0); MONO # 0.5 10^3/uL (0.0-0.8); MONO % 8.8 % (2.0-8.0); NEUTROPHILS # 3.3 10^3/uL (1.5-8.5); NEUTROPHILS % 60.5 % (36.0-66.0); PLATELET COUNT, AUTOMATED 337 10^3/uL (150-450); WHITE BLOOD COUNT 5.5 10^3/uL (4.0-10.0)
[2020-12-26 12:53] LABS: BLOOD UREA NITROGEN 18 MG/DL (7-18); CALCIUM LEVEL 9.4 MG/DL (8.8-10.2); CARBON DIOXIDE LEVEL 30 MEQ/L (21-32); CHLORIDE LEVEL 105 MEQ/L (98-107); CREATININE FOR GFR 0.91 MG/DL (0.70-1.30); GLOMERULAR FILTRATION RATE > 60.0 (>49); GLUCOSE, FASTING 97 MG/DL (70-100); PHOSPHORUS LEVEL 3.1 MG/DL (2.5-4.9); POTASSIUM SERUM 4.4 MEQ/L (3.5-5.1); SODIUM LEVEL 140 MEQ/L (136-145); TOTAL PROTEIN 6.9 GM/DL (6.4-8.2)
[2020-12-26 12:59] LABS: HEMOGLOBIN A1c 5.4 %
[2020-12-26 13:01] LABS: PTH INTACT 51.8 PG/ML (18.5-88.0); TOTAL 25(OH) VITAMIN D 43.2 NG/ML (30.0-100.0); VITAMIN B12 LEVEL 618 PG/ML (247-911)
[2020-12-29 13:55] LABS: ALBUMIN 4.26 GM/DL (3.29-5.55); ALBUMIN % 61.7 % (55.8-66.1); ALPHA-1-GLOBULIN % 4.5 % (2.9-4.9); ALPHA-1-GLOBULINS 0.31 GM/DL (0.17-0.41); ALPHA-2-GLOBULINS 0.81 GM/DL (0.42-0.99); ALPHA-2-GLOBULINS % 11.7 % (7.1-11.8); BETA-1-GLOBULINS 0.42 GM/DL (0.28-0.60); BETA-1-GLOBULINS % 6.1 % (4.7-7.2); BETA-2-GLOBULINS % 6.2 % (3.2-6.5); GAMMA GLOBULIN % 9.8 % (11.1-18.8)
[2020-12-29 13:56] LABS: BETA-2-GLOBULINS 0.43 GM/DL (0.19-0.55); GAMMA GLOBULINS 0.68 GM/DL (0.65-1.58)
== END ==
LOC: M SFHCPLAZ 09:53
PROVIDERS: ATTEND Family Medicine
DX: E55.9 Vitamin D deficiency, unspecified (principal); R73.01 Impaired fasting glucose; D75.89 Other specified diseases of blood and blood-forming organs
CPT/HCPCS: 36415; 80069; 82306; 82607; 83036; 83525; 83970; 84165; 85025; 86335; G0463

== ENCOUNTER → 2021-02-02 | Outpatient (REF) | payer OTHER | LOC: M SFHCPLAZ 16:02 | PROVIDERS: ATTEND Family Medicine | DX: L30.8 Other specified dermatitis (principal) | CPT/HCPCS: 11104; 11105; 88305; G0463 ==

== ENCOUNTER → 2021-02-27 | Outpatient (CLI) | payer OTHER ==
[2021-02-27 14:25] LABS: HEPATITIS B SURFACE ANTIGEN NEGATIVE (NEGATIVE)
== END ==
LOC: M PLALAB 10:08
PROVIDERS: ATTEND Family Medicine
DX: L40.0 Psoriasis vulgaris (principal)

== ENCOUNTER → 2021-04-20 | Outpatient (CLI) | payer OTHER ==
[2021-04-20 14:30] LABS: BASO # 0.1 10^3/uL (0.0-0.2); BASO % 1.2 % (0.0-1.0); EOS # 0.2 10^3/uL (0.0-0.5); EOS % 4.3 % (0.0-3.0); HEMATOCRIT 45.7 % (42.0-52.0); HEMOGLOBIN 14.9 g/dl (13.5-17.5); LYMPH # 1.7 10^3/uL (1.5-5.0); LYMPH % 34.9 % (24.0-44.0); MEAN CORPUSCULAR HEMOGLOBIN 30.3 pg (27.0-33.0); MEAN CORPUSCULAR HGB CONC 32.6 g/dl (32.0-36.5); MEAN CORPUSCULAR VOLUME 92.9 fl (80.0-96.0); MONO # 0.5 10^3/uL (0.0-0.8); MONO % 10.3 % (2.0-8.0); NEUTROPHILS # 2.4 10^3/uL (1.5-8.5); NEUTROPHILS % 49.1 % (36.0-66.0); PLATELET COUNT, AUTOMATED 346 10^3/uL (150-450); RED BLOOD COUNT 4.92 10^6/uL (4.30-6.10); WHITE BLOOD COUNT 4.9 10^3/uL (4.0-10.0)
[2021-04-20 15:04] LABS: ALBUMIN 3.6 GM/DL (3.2-5.2); ALT/SGPT 41 U/L (12-78); BILIRUBIN,TOTAL 0.7 MG/DL (0.2-1.0); BLOOD UREA NITROGEN 14 MG/DL (7-18); CALCIUM LEVEL 9.4 MG/DL (8.8-10.2); CARBON DIOXIDE LEVEL 30 MEQ/L (21-32); CHLORIDE LEVEL 108 MEQ/L (98-107); CREATININE FOR GFR 0.82 MG/DL (0.70-1.30); ERYTHROCYTE SEDIMENTATION RATE 3 mm/hr (0-20); GLOMERULAR FILTRATION RATE > 60.0 (>49); GLUCOSE, FASTING 93 MG/DL (70-100); POTASSIUM SERUM 5.5 MEQ/L (3.5-5.1); SODIUM LEVEL 140 MEQ/L (136-145); TOTAL PROTEIN 6.7 GM/DL (6.4-8.2); TOTAL PROTEIN,RANDOM URINE 20.8 MG/DL (0.0-12.0)
[2021-05-04 13:09] LABS: ANA (HEP2) Negative (.)
== END ==
LOC: M PLALAB 09:27
PROVIDERS: ATTEND Family Medicine
DX: L40.0 Psoriasis vulgaris (principal)

== ENCOUNTER → 2021-12-15 | Outpatient (CLI) | payer OTHER ==
[~2021-12-15] MED LIST changes: -D31000TA2 PO; +VITA100093 PO
[2021-12-15 10:35] LABS: BASO # 0.1 10^3/uL (0.0-0.2); BASO % 1.2 % (0.0-1.0); EOS # 0.3 10^3/uL (0.0-0.5); EOS % 4.6 % (0.0-3.0); HEMATOCRIT 44.3 % (42.0-52.0); HEMOGLOBIN 14.6 g/dl (13.5-17.5); LYMPH # 2.4 10^3/uL (1.5-5.0); LYMPH % 41.9 % (24.0-44.0); MEAN CORPUSCULAR HEMOGLOBIN 30.4 pg (27.0-33.0); MEAN CORPUSCULAR VOLUME 92.3 fl (80.0-96.0); MONO # 0.6 10^3/uL (0.0-0.8); MONO % 10.8 % (2.0-8.0); NEUTROPHILS # 2.3 10^3/uL (1.5-8.5); NEUTROPHILS % 41.1 % (36.0-66.0); PLATELET COUNT, AUTOMATED 317 10^3/uL (150-450); WHITE BLOOD COUNT 5.7 10^3/uL (4.0-10.0)
[2021-12-15 10:41] LABS: ALBUMIN 3.8 GM/DL (3.2-5.2); ALT/SGPT 34 U/L (12-78); BILIRUBIN,TOTAL 0.7 MG/DL (0.2-1.0); BLOOD UREA NITROGEN 18 MG/DL (7-18); CALCIUM LEVEL 9.5 MG/DL (8.8-10.2); CARBON DIOXIDE LEVEL 29 MEQ/L (21-32); CHLORIDE LEVEL 110 MEQ/L (98-107); CHOLESTEROL LEVEL 183 MG/DL (<200); CREATININE FOR GFR 0.79 MG/DL (0.70-1.30); FERRITIN 209 NG/ML (26-388); FREE T4 0.82 NG/DL (0.76-1.46); GLOMERULAR FILTRATION RATE > 60.0 (>49); GLUCOSE, FASTING 97 MG/DL (70-100); HDL CHOLESTEROL 61 MG/DL (>40); LDL CHOLESTEROL 110 MG/DL (<100); MAGNESIUM LEVEL 2.1 MG/DL (1.8-2.4); NON-HDL-C 122 MG/DL; NT-PRO BNP 27 PG/ML (<125); POTASSIUM SERUM 4.9 MEQ/L (3.5-5.1); RHEUMATOID FACTOR QUANT < 10.0 IU/ML (<15.0); SODIUM LEVEL 142 MEQ/L (136-145); TOTAL PROTEIN 6.5 GM/DL (6.4-8.2); TRIGLYCERIDES LEVEL 60 MG/DL (<150)
[2021-12-15 10:53] LABS: HEMOGLOBIN A1c 5.4 %
[2021-12-17 01:07] LABS: INSULIN LEVEL 19.7 uIU/mL (2.6-24.9)
== END ==
LOC: M PLALAB 07:56
PROVIDERS: ATTEND Family Medicine
DX: I10 Essential (primary) hypertension (principal); Z12.5 Encounter for screening for malignant neoplasm of prostate; E55.9 Vitamin D deficiency, unspecified; R73.01 Impaired fasting glucose; L40.0 Psoriasis vulgaris
CPT/HCPCS: 36415; 80053; 80061; 82306; 82728; 83036; 83525; 83735; 83880; 83970; 84439; 84443; 85025; 86200; 86431; G0103

== ENCOUNTER → 2022-03-18 | Outpatient (CLI) | payer OTHER ==
[2022-03-18 12:56] LABS: BASO # 0.1 10^3/uL (0.0-0.2); BASO % 0.6 % (0.0-1.0); EOS % 0.4 % (0.0-3.0); HEMATOCRIT 43.2 % (42.0-52.0); HEMOGLOBIN 14.6 g/dl (13.5-17.5); LYMPH # 1.6 10^3/uL (1.5-5.0); LYMPH % 19.7 % (24.0-44.0); MEAN CORPUSCULAR HEMOGLOBIN 30.7 pg (27.0-33.0); MEAN CORPUSCULAR HGB CONC 33.8 g/dl (32.0-36.5); MEAN CORPUSCULAR VOLUME 90.9 fl (80.0-96.0); MONO # 0.6 10^3/uL (0.0-0.8); NEUTROPHILS # 5.9 10^3/uL (1.5-8.5); NEUTROPHILS % 71.9 % (36.0-66.0); PLATELET COUNT, AUTOMATED 336 10^3/uL (150-450); RED BLOOD COUNT 4.75 10^6/uL (4.30-6.10); WHITE BLOOD COUNT 8.2 10^3/uL (4.0-10.0)
[2022-03-18 13:17] LABS: ERYTHROCYTE SEDIMENTATION RATE 6 mm/hr (0-20)
[2022-03-18 13:30] LABS: ALBUMIN 3.7 GM/DL (3.2-5.2); ALT/SGPT 39 U/L (12-78); BILIRUBIN,TOTAL 0.4 MG/DL (0.2-1.0); BLOOD UREA NITROGEN 17 MG/DL (7-18); CALCIUM LEVEL 9.3 MG/DL (8.8-10.2); CARBON DIOXIDE LEVEL 24 MEQ/L (21-32); CHLORIDE LEVEL 112 MEQ/L (98-107); CREATININE FOR GFR 0.84 MG/DL (0.70-1.30); FREE T4 0.97 NG/DL (0.76-1.46); GLOMERULAR FILTRATION RATE > 60.0 (>49); GLUCOSE, FASTING 100 MG/DL (70-100); POTASSIUM SERUM 4.3 MEQ/L (3.5-5.1); SODIUM LEVEL 141 MEQ/L (136-145); TOTAL PROTEIN 6.6 GM/DL (6.4-8.2)
== END ==
LOC: M LAB 12:31
PROVIDERS: ATTEND Physician Assistant
DX: F68.8 Other specified disorders of adult personality and behavior (principal)

== ENCOUNTER 2022-03-24 14:56 | Inpatient (IN) | payer OTHER ==
[~2022-03-24] VITALS: Ht 175.3 cm; Wt 93.5 kg
[2022-03-24] MEDS ORDERED: HUMI40KI (15:10)
[2022-03-24] MEDS ORDERED: QUET100T2 (15:10)
[2022-03-24] MEDS ORDERED: HUMI40KI SC (16:05)
[2022-03-24 16:31] LABS: BASO % 0.5 % (0.0-1.0); EOS # 0.2 10^3/uL (0.0-0.5); EOS % 1.9 % (0.0-3.0); HEMATOCRIT 47.4 % (42.0-52.0); HEMOGLOBIN 15.7 g/dl (13.5-17.5); LYMPH # 2.4 10^3/uL (1.5-5.0); LYMPH % 29.9 % (24.0-44.0); MEAN CORPUSCULAR HEMOGLOBIN 30.4 pg (27.0-33.0); MEAN CORPUSCULAR HGB CONC 33.1 g/dl (32.0-36.5); MEAN CORPUSCULAR VOLUME 91.7 fl (80.0-96.0); MONO # 0.7 10^3/uL (0.0-0.8); MONO % 9.1 % (2.0-8.0); NEUTROPHILS # 4.6 10^3/uL (1.5-8.5); NEUTROPHILS % 58.1 % (36.0-66.0); PLATELET COUNT, AUTOMATED 335 10^3/uL (150-450); RED BLOOD COUNT 5.17 10^6/uL (4.30-6.10); WHITE BLOOD COUNT 7.9 10^3/uL (4.0-10.0)
[2022-03-24 17:16] LABS: CK-MB VALUE MASS < 1.0 NG/ML (<3.6); CPK CREATINE PHOSPHOKINASE 137 U/L (39-308); MB/CK RELATIVE INDEX 0.73 (< OR =4)
[2022-03-24 17:21] LABS: ACETAMINOPHEN LEVEL < 2.0 UG/ML (10.0-30.0); ALBUMIN 3.6 GM/DL (3.2-5.2); ALT/SGPT 44 U/L (12-78); BILIRUBIN,DIRECT < 0.1 MG/DL (0.0-0.2); BILIRUBIN,TOTAL 0.3 MG/DL (0.2-1.0); BLOOD UREA NITROGEN 21 MG/DL (7-18); CARBON DIOXIDE LEVEL 26 MEQ/L (21-32); CHLORIDE LEVEL 106 MEQ/L (98-107); CREATININE FOR GFR 0.89 MG/DL (0.70-1.30); ETHYL ALCOHOL (ETHANOL) < 0.003 % (0.000-0.010); GLOMERULAR FILTRATION RATE > 60.0 (>49); GLUCOSE, FASTING 78 MG/DL (70-100); POTASSIUM SERUM 4.6 MEQ/L (3.5-5.1); SALICYLATE LEVEL < 1.7 MG/DL (5.0-30.0); SODIUM LEVEL 138 MEQ/L (136-145); TOTAL PROTEIN 6.7 GM/DL (6.4-8.2)
[2022-03-24 17:57] LABS: AMPHETAMINES LEVEL URINE NEGATIVE (NEGATIVE); BARBITURATES URINE NEGATIVE (NEGATIVE); BENZODIAZEPINES URINE NEGATIVE (NEGATIVE); CANNABINOIDS URINE POSITIVE (NEGATIVE); COCAINE METABOLITE URINE NEGATIVE (NEGATIVE); METHADONE URINE NEGATIVE (NEGATIVE); OPIATES URINE NEGATIVE (NEGATIVE); PHENCYCLIDINE URINE NEGATIVE (NEGATIVE)
[2022-03-24] MEDS ORDERED: NAPR-849 PO (19:10)
[2022-03-24] MEDS ORDERED: QUET50TA4 PO (19:10)
[2022-03-24] MEDS ORDERED: HOME MED LIST COMPLETE! XX SCH (19:10)
[2022-03-24] MEDS ORDERED: ACETAMINOPHEN TAB 650MG DOSE (2X325MG) PO PRN (19:35)
[2022-03-24] MEDS ORDERED: NAPROXEN 250 MG TAB PO PRN (19:35)
[2022-03-24] MEDS ORDERED: LACTULOSE 20 GM/30 ML SYRUP UD PO ONE (19:40)
[2022-03-24 20:29] LABS: C REACTIVE PROTEIN QUANTITATIV < 0.30 MG/DL (0.00-0.30); THYROXINE (T4) 8.9 UG/DL (4.5-12.0)
[2022-03-24 20:34] LABS: ERYTHROCYTE SEDIMENTATION RATE 2 mm/hr (0-20)
[2022-03-24 20:51] LABS: VITAMIN B12 LEVEL 525 PG/ML (247-911)
[2022-03-24] MEDS ORDERED: QUEtiapine FUMARATE 50MG TAB PO SCH (21:00)
[2022-03-24 21:02] LABS: RSV AMPLIFICATION NEGATIVE (NEGATIVE)
[2022-03-24 22:59] LABS: INR 0.91; PROTHROMBIN TIME 12.7 SECONDS (12.7-14.5)
[2022-03-24 23:00] LABS: PARTIAL THROMBOPLASTIN TIME 26.3 SECONDS (25.9-37.0)
[2022-03-24 23:15] VITALS: BP 129/72
[2022-03-25 06:48] VITALS: BP 144/91
[2022-03-25 06:58] LABS: HEMATOCRIT 50.2 % (42.0-52.0); HEMOGLOBIN 16.5 g/dl (13.5-17.5); MEAN CORPUSCULAR HEMOGLOBIN 30.4 pg (27.0-33.0); MEAN CORPUSCULAR HGB CONC 32.9 g/dl (32.0-36.5); MEAN CORPUSCULAR VOLUME 92.6 fl (80.0-96.0); PLATELET COUNT, AUTOMATED 344 10^3/uL (150-450); RED BLOOD COUNT 5.42 10^6/uL (4.30-6.10); WHITE BLOOD COUNT 7.9 10^3/uL (4.0-10.0)
[2022-03-25 07:26] LABS: BLOOD UREA NITROGEN 18 MG/DL (7-18); CALCIUM LEVEL 9.4 MG/DL (8.8-10.2); CARBON DIOXIDE LEVEL 27 MEQ/L (21-32); CHLORIDE LEVEL 104 MEQ/L (98-107); GLOMERULAR FILTRATION RATE > 60.0 (>49); GLUCOSE, FASTING 104 MG/DL (70-100); MAGNESIUM LEVEL 2.2 MG/DL (1.8-2.4); POTASSIUM SERUM 4.6 MEQ/L (3.5-5.1); SODIUM LEVEL 138 MEQ/L (136-145)
[2022-03-25] MEDS: ATORVASTATIN 20 MG TAB PO SCH (08:37)
[2022-03-25] MEDS: ramipriL 5 MG CAP PO SCH (08:37)
[2022-03-25 13:54] VITALS: BP 131/70
[2022-03-25] MEDS: OLANZapine 5 MG TAB PO PRN (17:26)
[2022-03-25] MEDS: QUEtiapine FUMARATE 50MG TAB PO SCH (19:18)
[2022-03-25] MEDS ORDERED: diazePAM 5MG TABLET PO ONE (20:50)
[2022-03-26 05:56] LABS: HEMATOCRIT 48.4 % (42.0-52.0); HEMOGLOBIN 16.2 g/dl (13.5-17.5); MEAN CORPUSCULAR HEMOGLOBIN 30.7 pg (27.0-33.0); MEAN CORPUSCULAR HGB CONC 33.5 g/dl (32.0-36.5); MEAN CORPUSCULAR VOLUME 91.8 fl (80.0-96.0); PLATELET COUNT, AUTOMATED 367 10^3/uL (150-450); RED BLOOD COUNT 5.27 10^6/uL (4.30-6.10); WHITE BLOOD COUNT 10.8 10^3/uL (4.0-10.0)
[2022-03-26 06:39] LABS: BLOOD UREA NITROGEN 20 MG/DL (7-18); CALCIUM LEVEL 9.5 MG/DL (8.8-10.2); CARBON DIOXIDE LEVEL 28 MEQ/L (21-32); CHLORIDE LEVEL 103 MEQ/L (98-107); CREATININE FOR GFR 1.02 MG/DL (0.70-1.30); GLOMERULAR FILTRATION RATE > 60.0 (>49); GLUCOSE, FASTING 132 MG/DL (70-100); POTASSIUM SERUM 4.5 MEQ/L (3.5-5.1); SODIUM LEVEL 138 MEQ/L (136-145)
[2022-03-26] MEDS: OLANZapine 5 MG TAB PO PRN (08:41)
[2022-03-26] MEDS: ATORVASTATIN 20 MG TAB PO SCH (08:41)
[2022-03-26] MEDS: ramipriL 5 MG CAP PO SCH (08:41)
[2022-03-26] MEDS ORDERED: LORazepam 2 MG TAB PO ONE (10:00)
[2022-03-26] MEDS ORDERED: diphenhydrAMINE 50MG/ML VIAL (J1200) As Ordered ONE (16:34)
[2022-03-26] MEDS: diphenhydrAMINE 50MG/ML VIAL (J1200) IM PRN (16:38)
[2022-03-26] MEDS: QUEtiapine FUMARATE 50MG TAB PO SCH (19:56)
[2022-03-26 22:53] VITALS: BP 136/75
[2022-03-27 06:49] VITALS: BP 142/81
[2022-03-27 07:23] LABS: HEMATOCRIT 45.7 % (42.0-52.0); HEMOGLOBIN 15.2 g/dl (13.5-17.5); MEAN CORPUSCULAR HEMOGLOBIN 30.5 pg (27.0-33.0); MEAN CORPUSCULAR HGB CONC 33.3 g/dl (32.0-36.5); MEAN CORPUSCULAR VOLUME 91.6 fl (80.0-96.0); PLATELET COUNT, AUTOMATED 325 10^3/uL (150-450); RED BLOOD COUNT 4.99 10^6/uL (4.30-6.10); WHITE BLOOD COUNT 7.7 10^3/uL (4.0-10.0)
[2022-03-27 07:56] LABS: BLOOD UREA NITROGEN 20 MG/DL (7-18); CALCIUM LEVEL 9.2 MG/DL (8.8-10.2); CARBON DIOXIDE LEVEL 27 MEQ/L (21-32); CHLORIDE LEVEL 106 MEQ/L (98-107); CREATININE FOR GFR 0.86 MG/DL (0.70-1.30); GLOMERULAR FILTRATION RATE > 60.0 (>49); GLUCOSE, FASTING 95 MG/DL (70-100); POTASSIUM SERUM 4.5 MEQ/L (3.5-5.1); SODIUM LEVEL 139 MEQ/L (136-145)
[2022-03-27] MEDS: ramipriL 5 MG CAP PO SCH (10:29)
[2022-03-27] MEDS: ATORVASTATIN 20 MG TAB PO SCH (10:34)
[2022-03-27] MEDS: DIVALPROEX 500 MG TAB PO SCH ×2 (15:38→22:13)
[2022-03-27] MEDS ORDERED: HALOPERIDOL 5MG/ML VIAL (J1630 PER 1) IM PRN (19:35)
[2022-03-27 20:07] LABS: ANA (HEP2) Negative (.)
[2022-03-27] MEDS ORDERED: LORazepam 1 MG TAB PO PRN (20:25)
[2022-03-27] MEDS ORDERED: HALOPERIDOL 5MG/ML VIAL (J1630 PER 1) IM STA (21:57)
[2022-03-27] MEDS: diphenhydrAMINE 50MG/ML VIAL (J1200) IM PRN (23:19)
[2022-03-28 06:00] VITALS: BP 141/80
[2022-03-28 06:46] LABS: HEMATOCRIT 43.2 % (42.0-52.0); HEMOGLOBIN 14.5 g/dl (13.5-17.5); MEAN CORPUSCULAR HEMOGLOBIN 30.5 pg (27.0-33.0); MEAN CORPUSCULAR HGB CONC 33.6 g/dl (32.0-36.5); MEAN CORPUSCULAR VOLUME 90.8 fl (80.0-96.0); PLATELET COUNT, AUTOMATED 309 10^3/uL (150-450); RED BLOOD COUNT 4.76 10^6/uL (4.30-6.10); WHITE BLOOD COUNT 7.3 10^3/uL (4.0-10.0)
[2022-03-28 07:23] LABS: BLOOD UREA NITROGEN 20 MG/DL (7-18); CALCIUM LEVEL 9.1 MG/DL (8.8-10.2); CARBON DIOXIDE LEVEL 27 MEQ/L (21-32); CHLORIDE LEVEL 105 MEQ/L (98-107); CREATININE FOR GFR 0.91 MG/DL (0.70-1.30); GLOMERULAR FILTRATION RATE > 60.0 (>49); GLUCOSE, FASTING 82 MG/DL (70-100); POTASSIUM SERUM 4.6 MEQ/L (3.5-5.1); SODIUM LEVEL 139 MEQ/L (136-145)
[2022-03-28] MEDS: ATORVASTATIN 20 MG TAB PO SCH (10:19)
[2022-03-28] MEDS: ramipriL 5 MG CAP PO SCH (10:19)
[2022-03-28] MEDS: DIVALPROEX 500 MG TAB PO SCH ×2 (10:20→20:10)
[2022-03-28 14:00] VITALS: BP 131/71
[2022-03-28 22:18] VITALS: BP 140/76
[2022-03-29 06:00] VITALS: BP 100/61
[2022-03-29 06:44] LABS: HEMATOCRIT 44.9 % (42.0-52.0); MEAN CORPUSCULAR HEMOGLOBIN 30.7 pg (27.0-33.0); MEAN CORPUSCULAR HGB CONC 33.4 g/dl (32.0-36.5); MEAN CORPUSCULAR VOLUME 91.8 fl (80.0-96.0); PLATELET COUNT, AUTOMATED 295 10^3/uL (150-450); RED BLOOD COUNT 4.89 10^6/uL (4.30-6.10); WHITE BLOOD COUNT 6.3 10^3/uL (4.0-10.0)
[2022-03-29 07:23] LABS: BLOOD UREA NITROGEN 17 MG/DL (7-18); CALCIUM LEVEL 9.3 MG/DL (8.8-10.2); CARBON DIOXIDE LEVEL 30 MEQ/L (21-32); CHLORIDE LEVEL 106 MEQ/L (98-107); CREATININE FOR GFR 0.88 MG/DL (0.70-1.30); GLOMERULAR FILTRATION RATE > 60.0 (>49); GLUCOSE, FASTING 85 MG/DL (70-100); POTASSIUM SERUM 4.6 MEQ/L (3.5-5.1); SODIUM LEVEL 141 MEQ/L (136-145)
[2022-03-29] MEDS ORDERED: DOXYCYCLINE HYCLATE 100MG TABLET PO SCH (09:00)
[2022-03-29] MEDS: ATORVASTATIN 20 MG TAB PO SCH (10:09)
[2022-03-29] MEDS: DIVALPROEX 500 MG TAB PO SCH (10:10)
[2022-03-29 10:12] VITALS: BP 117/86
[2022-03-29] MEDS: ramipriL 5 MG CAP PO SCH (10:12)
[2022-03-29] MEDS ORDERED: DIVA500T94 PO (10:55)
[2022-03-29] MEDS ORDERED: HALO5TAB33 PO (10:55)
[2022-03-29] MEDS ORDERED: DOXY100C3 PO (13:02)
[2022-04-05 01:06] LABS: ROCKY MTN SPOTTED FEVER IgM 0.32 index (0.00-0.89)
[2022-04-06 13:07] LABS: BABESIA MICROTI PCR Negative (Negative)
== END 2022-03-29 16:00 | disposition home or self-care (01) | DRG 71 ==
LOC: M ED 14:56 → M ED INP 14:57 → ENRESERV 22:49 → M MS5PR 23:10 → OBSVTOIN 03-26 19:59
PROVIDERS: ADMIT Internal Medicine; ATTEND Internal Medicine
DX: G93.40 Encephalopathy, unspecified (principal); E72.20 Disorder of urea cycle metabolism, unspecified; I10 Essential (primary) hypertension; E78.5 Hyperlipidemia, unspecified; L40.8 Other psoriasis; M54.2 Cervicalgia; G89.29 Other chronic pain; Z88.2 Allergy status to sulfonamides; Z79.899 Other long term (current) drug therapy; G47.00 Insomnia, unspecified; R00.0 Tachycardia, unspecified; Z90.49 Acquired absence of other specified parts of digestive tract; Z90.79 Acquired absence of other genital organ(s); Z81.8 Family history of other mental and behavioral disorders; T38.0X5A Adverse effect of glucocorticoids and synthetic analogues, initial encounter; Z78.1 Physical restraint status

== ENCOUNTER → 2022-05-28 | Outpatient (CLI) | payer OTHER ==
[~2022-05-28] MED LIST changes: +DIVA500T94 PO; +DOXY100C3 PO; +HALO5TAB33 PO; +HUMI40KI; +HUMI40KI SC; +NAPR-849 PO; +QUET100T2; +QUET50TA4 PO
== END ==
LOC: M PLAIMG 09:54
PROVIDERS: ATTEND Family Medicine
DX: M47.22 Other spondylosis with radiculopathy, cervical region (principal)

== ENCOUNTER → 2022-07-01 | Outpatient (CLI) | payer OTHER | LOC: M PLARAD 13:56 | PROVIDERS: ATTEND Family Medicine | DX: M47.22 Other spondylosis with radiculopathy, cervical region (principal); M25.78 Osteophyte, vertebrae ==

== ENCOUNTER → 2022-08-23 | Outpatient (CLI) | payer OTHER ==
[2022-08-23 10:22] LABS: BLOOD UREA NITROGEN 14 MG/DL (9-23); CREATININE FOR GFR 0.76 MG/DL (0.70-1.30); GLOMERULAR FILTRATION RATE > 60.0 (>49)
== END ==
LOC: M LAB 09:18
PROVIDERS: ATTEND Otolaryngology
DX: H90.3 Sensorineural hearing loss, bilateral (principal)

== ENCOUNTER → 2022-08-23 | Outpatient (CLI) | payer OTHER ==
[2022-08-23 09:53] LABS: BASO % 0.7 % (0.0-1.0); EOS # 0.3 10^3/uL (0.0-0.5); EOS % 4.6 % (0.0-3.0); HEMATOCRIT 42.5 % (42.0-52.0); HEMOGLOBIN 13.8 g/dl (13.5-17.5); LYMPH # 1.7 10^3/uL (1.5-5.0); LYMPH % 30.7 % (24.0-44.0); MEAN CORPUSCULAR HEMOGLOBIN 29.7 pg (27.0-33.0); MEAN CORPUSCULAR HGB CONC 32.5 g/dl (32.0-36.5); MEAN CORPUSCULAR VOLUME 91.4 fl (80.0-96.0); MONO # 0.6 10^3/uL (0.0-0.8); MONO % 10.8 % (2.0-8.0); NEUTROPHILS % 52.8 % (36.0-66.0); PLATELET COUNT, AUTOMATED 300 10^3/uL (150-450); RED BLOOD COUNT 4.65 10^6/uL (4.30-6.10); WHITE BLOOD COUNT 5.7 10^3/uL (4.0-10.0)
[2022-08-23 10:06] LABS: ERYTHROCYTE SEDIMENTATION RATE 4 mm/hr (0-20)
[2022-08-23 10:22] LABS: ALBUMIN 3.7 G/DL (3.2-5.2); ALKALINE PHOSPHATASE 80 U/L (46-116); ALT/SGPT 24 U/L (7.0-40); AST/SGOT 20 U/L (<34); BILIRUBIN,TOTAL 0.7 MG/DL (0.3-1.2); BLOOD UREA NITROGEN 14 MG/DL (9-23); CALCIUM LEVEL 8.8 MG/DL (8.3-10.6); CARBON DIOXIDE LEVEL 22 MMOL/L (20-31); CHLORIDE LEVEL 107 MMOL/L (98-107); CHOLESTEROL LEVEL 140 MG/DL (<200); CHOLESTEROL RISK RATIO 2.42 (<5); CREATININE FOR GFR 0.77 MG/DL (0.70-1.30); GLOMERULAR FILTRATION RATE > 60.0 (>49); GLUCOSE, FASTING 96 MG/DL (74-106); HDL CHOLESTEROL 57.7 MG/DL (>40); LDL CHOLESTEROL 73.5 MG/DL (<100); NON-HDL-C 82 MG/DL; POTASSIUM SERUM 4.5 MMOL/L (3.5-5.1); SODIUM LEVEL 143 MMOL/L (136-145); TOTAL PROTEIN 6.2 G/DL (5.7-8.2); TRIGLYCERIDES LEVEL 44 MG/DL (<150)
[2022-08-23 10:25] LABS: THYROID STIMULATING HORMONE 1.331 uIU/ML (0.55-4.78)
[2022-08-23 10:26] LABS: FREE T4 1.08 NG/DL (0.89-1.76)
[2022-08-23 11:53] LABS: C REACTIVE PROTEIN QUANTITATIV < 0.40 MG/DL (<1.0)
== END ==
LOC: M LAB 09:20
PROVIDERS: ATTEND Family Medicine
DX: I10 Essential (primary) hypertension (principal)

== ENCOUNTER → 2022-08-26 | Outpatient (CLI) | payer OTHER | LOC: M PLARAD 12:14 | PROVIDERS: ATTEND Otolaryngology | DX: H90.3 Sensorineural hearing loss, bilateral (principal) ==

== ENCOUNTER → 2022-08-31 | Outpatient (REF) | payer OTHER | LOC: M LAB REF 16:58 | PROVIDERS: ATTEND Surgery | DX: L72.11 Pilar cyst (principal) ==

== ENCOUNTER → 2022-09-06 | Outpatient (REF) | payer OTHER | LOC: M LAB REF 11:52 | PROVIDERS: ATTEND Surgery | DX: L72.12 Trichodermal cyst (principal) ==

== ENCOUNTER → 2022-12-14 | Outpatient (CLI) | payer OTHER | LOC: M PLALAB 10:10 | PROVIDERS: ATTEND Physician Assistant | DX: M25.551 Pain in right hip (principal) | CPT/HCPCS: 73502; G0463 ==

== ENCOUNTER → 2023-01-21 | Outpatient (CLI) | payer OTHER | LOC: M SOG 08:46 | PROVIDERS: ATTEND Orthopaedic Surgery | DX: M16.0 Bilateral primary osteoarthritis of hip (principal) ==

== ENCOUNTER 2023-02-01 08:07 | Outpatient (RCR) | payer OTHER, MEDICARE | END 2023-02-18 | LOC: M PT 08:07 | PROVIDERS: ATTEND Orthopaedic Surgery | DX: M16.0 Bilateral primary osteoarthritis of hip (principal) ==

== ENCOUNTER → 2023-03-21 | Outpatient (REF) | payer MEDICARE, OTHER ==
[~2023-03-21] MED LIST changes: +ADVI200T PO
[2023-03-21 17:30] LABS: BASO # 0.1 10^3/uL (0.0-0.2); BASO % 0.6 % (0.0-1.0); EOS # 0.1 10^3/uL (0.0-0.5); HEMATOCRIT 46.9 % (42.0-52.0); HEMOGLOBIN 15.2 g/dl (13.5-17.5); LYMPH # 2.8 10^3/uL (1.5-5.0); LYMPH % 28.6 % (24.0-44.0); MEAN CORPUSCULAR HEMOGLOBIN 30.5 pg (27.0-33.0); MEAN CORPUSCULAR HGB CONC 32.4 g/dl (32.0-36.5); MONO # 0.7 10^3/uL (0.0-0.8); MONO % 7.4 % (2.0-8.0); PLATELET COUNT, AUTOMATED 360 10^3/uL (150-450); RED BLOOD COUNT 4.99 10^6/uL (4.30-6.10); WHITE BLOOD COUNT 9.6 10^3/uL (4.0-10.0)
[2023-03-21 17:49] LABS: INR 0.95; PARTIAL THROMBOPLASTIN TIME 23.5 SECONDS (24.8-34.2); PROTHROMBIN TIME 12.9 SECONDS (12.5-14.5)
[2023-03-21 17:52] LABS: PROSTATIC SPECIFIC AG MONITOR 1.96 NG/ML (< 4.00)
[2023-03-21 17:56] LABS: ALBUMIN 4.5 G/DL (3.2-5.2); ALKALINE PHOSPHATASE 84 U/L (46-116); ALT/SGPT 34 U/L (7.0-40); AST/SGOT 22 U/L (<34); BILIRUBIN,TOTAL 0.9 MG/DL (0.3-1.2); BLOOD UREA NITROGEN 16 MG/DL (9-23); CALCIUM LEVEL 10.1 MG/DL (8.3-10.6); CARBON DIOXIDE LEVEL 27 MMOL/L (20-31); CHLORIDE LEVEL 105 MMOL/L (98-107); CHOLESTEROL LEVEL 162 MG/DL (<200); CHOLESTEROL RISK RATIO 2.24 (<5); CREATININE FOR GFR 0.87 MG/DL (0.70-1.30); GLOMERULAR FILTRATION RATE > 60.0 (>49); GLUCOSE, FASTING 82 MG/DL (74-106); HDL CHOLESTEROL 72.1 MG/DL (>40); LDL CHOLESTEROL 76.3 MG/DL (<100); NON-HDL-C 89.9 MG/DL; POTASSIUM SERUM 5.3 MMOL/L (3.5-5.1); PTH INTACT 49.2 PG/ML (18.5-88.0); SODIUM LEVEL 144 MMOL/L (136-145); TOTAL PROTEIN 7.2 G/DL (5.7-8.2); TRIGLYCERIDES LEVEL 68 MG/DL (<150)
[2023-03-21 17:57] LABS: TOTAL 25(OH) VITAMIN D 70.9 NG/ML (20.0-100.0)
[2023-03-21 18:10] LABS: HEMOGLOBIN A1c 5.5 % (4.0-6.0)
== END ==
LOC: M SFHCPLAZ 16:49
PROVIDERS: ATTEND Family Medicine
DX: I10 Essential (primary) hypertension (principal); E78.5 Hyperlipidemia, unspecified; Z12.5 Encounter for screening for malignant neoplasm of prostate; E55.9 Vitamin D deficiency, unspecified; R73.01 Impaired fasting glucose
CPT/HCPCS: 80053; 80061; 82172; 82306; 83010; 83036; 83880; 83883; 83970; 84153; 85025; 85610; 85730; 93005; G0463

== ENCOUNTER 2023-03-29 06:11 | Observation (INO) | payer OTHER, MEDICARE ==
[2023-03-29] VITALS (7 sets, daily range): BP systolic 120–131; BP diastolic 65–88; TEMP 97.5–98.8; O2SAT 92–96
[~2023-03-29] VITALS: Ht 175.3 cm; Wt 88.8 kg
[~2023-03-29 06:11] MED LIST changes: +ROPIVA 100MG/KETOR 15MG/EPINEPHRINE 0.3MG IN NS 50ML SYRINGE PA ONE; +TRANEXAMIC ACID INJection 1,000 MG in NS 100 ML IV ONE
[2023-03-29] MEDS ORDERED: LR 1,000 ML IV SCH ×4 (06:40→10:20)
[2023-03-29] MEDS ORDERED: INSULIN LISPRO (NovoLOG) PER UNIT SC PRN (06:40)
[2023-03-29] MEDS ORDERED: ceFAZolin SOD 2 GM in IV 1 EA IV ONE (06:50)
[2023-03-29] MEDS ORDERED: TRANEXAMIC ACID 100 MG/ML 10ML VIAL As Ordered ONE ×3 (07:09→07:58)
[2023-03-29] MEDS ORDERED: fentaNYL 100 MCG/2 ML INJECTION As Ordered ONE ×2 (07:15→10:20)
[2023-03-29] MEDS ORDERED: MIDAZOLAM INJ 2MG/2ML VIAL As Ordered ONE (07:15)
[2023-03-29] MEDS ORDERED: LIDOCAINE 2% 100MG/5ML SDV (FOR ANES.) As Ordered ONE (07:15)
[2023-03-29] MEDS ORDERED: propofoL 200 MG/20 ML VIAL As Ordered ONE ×2 (07:15→09:25)
[2023-03-29] MEDS ORDERED: ROCURONIUM BROMIDE 50MG/5ML VIAL As Ordered ONE (07:15)
[2023-03-29] MEDS ORDERED: SUGAMMADEX SODIUM 500 MG/5 ML VIAL (BRIDION) As Ordered ONE (07:16)
[2023-03-29] MEDS ORDERED: ONDANSETRON 4MG 2ML VIAL As Ordered ONE (07:16)
[2023-03-29] MEDS ORDERED: propofoL 500 MG/50 ML VIAL As Ordered ONE ×2 (08:19→09:33)
[2023-03-29] MEDS ORDERED: PHENYLEPHRINE 10MG/ML 1ML VIAL As Ordered ONE (08:37)
[2023-03-29] MEDS ORDERED: VANCOMYCIN 500MG/10ML VIAL As Ordered ONE ×2 (09:43→09:44)
[2023-03-29] MEDS ORDERED: ACETAMINOPHEN 1000MG 100ML IV BAG As Ordered ONE (09:45)
[2023-03-29] MEDS ORDERED: HYDROMORPHONE HCL 0.5 MG/ 0.5 ML SYRINGE IV PRN ×2 (10:00→10:20)
[2023-03-29] MEDS ORDERED: METOCLOPRAMIDE INJ 10MG/2ML VIAL IV PRN ×2 (10:00→10:20)
[2023-03-29] MEDS ORDERED: ONDANSETRON 4MG 2ML VIAL IV PRN ×3 (10:00→10:20)
[2023-03-29] MEDS ORDERED: oxyCODONE 5MG TAB PO PRN ×2 (10:00→10:20)
[2023-03-29] MEDS ORDERED: fentaNYL 100 MCG/2 ML INJECTION IV PRN ×2 (10:00→10:20)
[2023-03-29] MEDS ORDERED: SENNA 8.6 MG TAB (SENOKOT) PO PRN (10:20)
[2023-03-29] MEDS: oxyCODONE 5MG TAB PO PRN ×3 (12:16→22:52)
[2023-03-29] MEDS ORDERED: HOME MED LIST COMPLETE! XX SCH (14:05)
[2023-03-29] MEDS: ceFAZolin SOD 2 GM in IV 1 EA IV SCH (16:32)
[2023-03-29] MEDS: ACETAMINOPHEN TAB 650MG DOSE (2X325MG) PO SCH (18:22)
[2023-03-29] MEDS: DOCUSATE SODIUM 100MG CAPSULE PO SCH (21:50)
[2023-03-30] MEDS: ACETAMINOPHEN TAB 650MG DOSE (2X325MG) PO SCH ×3 (00:46→11:37)
[2023-03-30] MEDS: ceFAZolin SOD 2 GM in IV 1 EA IV SCH (00:46)
[2023-03-30 02:02] VITALS: BP 122/65; TEMP 97.8; O2SAT 96
[2023-03-30 06:11] VITALS: BP 131/89; TEMP 98.1; O2SAT 94
[2023-03-30 06:11] LABS: HEMATOCRIT 37.9 % (42.0-52.0); HEMOGLOBIN 12.4 g/dl (13.5-17.5); MEAN CORPUSCULAR HEMOGLOBIN 30.2 pg (27.0-33.0); MEAN CORPUSCULAR HGB CONC 32.7 g/dl (32.0-36.5); MEAN CORPUSCULAR VOLUME 92.2 fl (80.0-96.0); PLATELET COUNT, AUTOMATED 244 10^3/uL (150-450); RED BLOOD COUNT 4.11 10^6/uL (4.30-6.10); WHITE BLOOD COUNT 7.9 10^3/uL (4.0-10.0)
[2023-03-30 06:22] LABS: INR 1.06
[2023-03-30 06:46] LABS: ALBUMIN 3.1 G/DL (3.2-5.2); BLOOD UREA NITROGEN 15 MG/DL (9-23); CALCIUM LEVEL 8.5 MG/DL (8.3-10.6); CARBON DIOXIDE LEVEL 27 MMOL/L (20-31); CHLORIDE LEVEL 105 MMOL/L (98-107); CREATININE FOR GFR 0.83 MG/DL (0.70-1.30); GLOMERULAR FILTRATION RATE > 60.0 (>49); GLUCOSE, FASTING 102 MG/DL (74-106); PHOSPHORUS LEVEL 4.1 MG/DL (2.4-5.1); POTASSIUM SERUM 4.4 MMOL/L (3.5-5.1); SODIUM LEVEL 140 MMOL/L (136-145)
[2023-03-30] MEDS: DOCUSATE SODIUM 100MG CAPSULE PO SCH (08:32)
[2023-03-30 08:33] VITALS: BP 131/89
[2023-03-30] MEDS: oxyCODONE 5MG TAB PO PRN ×2 (08:33→13:25)
[2023-03-30] MEDS ORDERED: ramipriL 5 MG CAP PO SCH (09:00)
[2023-03-30] MEDS ORDERED: ATORVASTATIN 20 MG TAB PO SCH (09:00)
[2023-03-30] MEDS ORDERED: VITAMIN D 1,000 INTERNATIONAL UNITS TABLET PO SCH (09:00)
[2023-03-30] MEDS ORDERED: RIVAROXABAN 10MG TAB (XARELTO) PO SCH (09:00)
[2023-03-30 10:00] VITALS: BP 123/72; TEMP 98.2; O2SAT 92
[2023-03-30] MEDS ORDERED: ECOT81TA5 PO (10:38)
[2023-03-30] MEDS ORDERED: OXYC1TAB23 PO (10:38)
[2023-03-30] MEDS ORDERED: SENN-188 PO (10:38)
[2023-03-30] MEDS ORDERED: XARE10TA PO (10:38)
[2023-03-30] MEDS ORDERED: COLA100C5 PO (10:38)
== END 2023-03-30 14:05 | disposition home or self-care (01) ==
LOC: M SDC 06:11 → M RR INP 10:20 → M MS5PR 11:55
PROVIDERS: ADMIT Orthopaedic Surgery; ATTEND Orthopaedic Surgery
DX: M16.11 Unilateral primary osteoarthritis, right hip (principal); I10 Essential (primary) hypertension; E78.5 Hyperlipidemia, unspecified; E66.09 Other obesity due to excess calories; Z79.899 Other long term (current) drug therapy; M47.812 Spondylosis without myelopathy or radiculopathy, cervical region; L40.0 Psoriasis vulgaris; R73.01 Impaired fasting glucose; H93.19 Tinnitus, unspecified ear; Z88.2 Allergy status to sulfonamides; Z88.8 Allergy status to other drugs, medicaments and biological substances; F12.10 Cannabis abuse, uncomplicated; L30.9 Dermatitis, unspecified
CPT/HCPCS: 27130; 36415; 72170; 76000; 80069; 85027; 85610; 88300; 96365; 96366; 97110; 97161; 97165; 97530; 97535; C1713; C1776; J0131; J0690; J2250; J2371; J2405; J3010

== ENCOUNTER → 2023-04-11 | Outpatient (CLI) | payer OTHER, MEDICARE ==
[~2023-04-11] MED LIST changes: +COLA100C5 PO; +ECOT81TA5 PO; +OXYC1TAB23 PO; -ROPIVA 100MG/KETOR 15MG/EPINEPHRINE 0.3MG IN NS 50ML SYRINGE PA ONE; +SENN-188 PO; -TRANEXAMIC ACID INJection 1,000 MG in NS 100 ML IV ONE; +XARE10TA PO
== END ==
LOC: M SOG 07:52
PROVIDERS: ATTEND Orthopaedic Surgery
DX: Z47.1 Aftercare following joint replacement surgery (principal); Z96.641 Presence of right artificial hip joint

== ENCOUNTER 2023-04-28 13:10 | Inpatient (IN) | payer OTHER, MEDICARE ==
[~2023-04-28] VITALS: Ht 175.3 cm; Wt 81.1 kg
[2023-04-28 17:06] LABS: BASO # 0.1 10^3/uL (0.0-0.2); BASO % 0.5 % (0.0-1.0); EOS % 0.1 % (0.0-3.0); HEMATOCRIT 41.5 % (42.0-52.0); HEMOGLOBIN 13.8 g/dl (13.5-17.5); LYMPH # 1.7 10^3/uL (1.5-5.0); LYMPH % 16.7 % (24.0-44.0); MEAN CORPUSCULAR HEMOGLOBIN 30.1 pg (27.0-33.0); MEAN CORPUSCULAR HGB CONC 33.3 g/dl (32.0-36.5); MEAN CORPUSCULAR VOLUME 90.6 fl (80.0-96.0); MONO # 0.7 10^3/uL (0.0-0.8); MONO % 6.6 % (2.0-8.0); NEUTROPHILS # 7.8 10^3/uL (1.5-8.5); NEUTROPHILS % 75.9 % (36.0-66.0); PLATELET COUNT, AUTOMATED 363 10^3/uL (150-450); RED BLOOD COUNT 4.58 10^6/uL (4.30-6.10); WHITE BLOOD COUNT 10.3 10^3/uL (4.0-10.0)
[2023-04-28 17:19] LABS: ALKALINE PHOSPHATASE 99 U/L (46-116); ALT/SGPT 33 U/L (7.0-40); AST/SGOT 17 U/L (<34); BILIRUBIN,DIRECT 0.3 MG/DL (<0.4); BILIRUBIN,TOTAL 0.7 MG/DL (0.3-1.2); BLOOD UREA NITROGEN 17 MG/DL (9-23); CALCIUM LEVEL 9.6 MG/DL (8.3-10.6); CARBON DIOXIDE LEVEL 23 MMOL/L (20-31); CHLORIDE LEVEL 105 MMOL/L (98-107); CREATININE FOR GFR 0.79 MG/DL (0.70-1.30); GLOMERULAR FILTRATION RATE > 60.0 (>49); GLUCOSE, FASTING 115 MG/DL (74-106); POTASSIUM SERUM 3.9 MMOL/L (3.5-5.1); SODIUM LEVEL 140 MMOL/L (136-145); TOTAL PROTEIN 6.7 G/DL (5.7-8.2)
[2023-04-28 17:22] LABS: THYROID STIMULATING HORMONE 0.743 uIU/ML (0.55-4.78)
[2023-04-28 17:48] LABS: OSMOLALITY SERUM 290 MOSM/KG (280-301)
[2023-04-28] MEDS ORDERED: LABETALOL 100MG/20ML VIAL IV STA (18:26)
[2023-04-28] MEDS ORDERED: NS 1,000 ML IV ONE (18:30)
[2023-04-28] MEDS ORDERED: ISOVUE-370 76% 100ML VIAL As Ordered ONE (18:33)
[2023-04-28 19:58] LABS: CK-MB VALUE MASS < 1.0 NG/ML (<3.6)
[2023-04-28 20:00] LABS: CPK CREATINE PHOSPHOKINASE 52 U/L (46-171); MB/CK RELATIVE INDEX 1.92 (< OR =4)
[2023-04-28 20:08] LABS: AMPHETAMINES LEVEL URINE NEGATIVE (NEGATIVE); BARBITURATES URINE NEGATIVE (NEGATIVE)
[2023-04-28 20:08] LABS: RSV AMPLIFICATION NEGATIVE (NEGATIVE)
[2023-04-28 20:09] LABS: BENZODIAZEPINES URINE NEGATIVE (NEGATIVE); COCAINE METABOLITE URINE NEGATIVE (NEGATIVE); METHADONE URINE NEGATIVE (NEGATIVE); OPIATES URINE NEGATIVE (NEGATIVE); PHENCYCLIDINE URINE NEGATIVE (NEGATIVE)
[2023-04-28 20:11] LABS: CANNABINOIDS URINE POSITIVE (NEGATIVE)
[2023-04-28] MEDS ORDERED: OXYC1TAB23 PO (22:49)
[2023-04-28] MEDS ORDERED: SENN-111 PO (22:49)
[2023-04-28] MEDS ORDERED: ASPI-161 PO (22:49)
[2023-04-28] MEDS ORDERED: HOME MED LIST COMPLETE! XX SCH (22:50)
[2023-04-28] MEDS ORDERED: MOM 30ML SUSPENSION UDC PO PRN (23:15)
[2023-04-28] MEDS ORDERED: PERCOCET 5MG/325MG TAB PO PRN (23:15)
[2023-04-28] MEDS: ASPIRIN 81MG ENTERIC TABLET PO SCH (23:39)
[2023-04-29] VITALS (8 sets, daily range): BP systolic 136–176; BP diastolic 72–90; TEMP 97.8–99.3; O2SAT 94–96
[2023-04-29] MEDS ORDERED: ramipriL 5 MG CAP PO ONE
[2023-04-29] MEDS ORDERED: LABETALOL 100MG/20ML VIAL IV PRN
[2023-04-29] MEDS ORDERED: NITROGLYCERIN 2% OINT 1 GM *U/D* PKT TOP ONE (01:00)
[2023-04-29 07:10] LABS: HEMATOCRIT 39.1 % (42.0-52.0); HEMOGLOBIN 12.9 g/dl (13.5-17.5); MEAN CORPUSCULAR HEMOGLOBIN 30.4 pg (27.0-33.0); MEAN CORPUSCULAR VOLUME 92.2 fl (80.0-96.0); PLATELET COUNT, AUTOMATED 338 10^3/uL (150-450); RED BLOOD COUNT 4.24 10^6/uL (4.30-6.10); WHITE BLOOD COUNT 8.4 10^3/uL (4.0-10.0)
[2023-04-29 07:30] LABS: ALBUMIN 3.5 G/DL (3.2-5.2); ALKALINE PHOSPHATASE 89 U/L (46-116); ALT/SGPT 29 U/L (7.0-40); AST/SGOT 13 U/L (<34); BILIRUBIN,TOTAL 0.9 MG/DL (0.3-1.2); BLOOD UREA NITROGEN 14 MG/DL (9-23); CALCIUM LEVEL 9.3 MG/DL (8.3-10.6); CARBON DIOXIDE LEVEL 27 MMOL/L (20-31); CHLORIDE LEVEL 103 MMOL/L (98-107); CREATININE FOR GFR 0.78 MG/DL (0.70-1.30); GLOMERULAR FILTRATION RATE > 60.0 (>49); GLUCOSE, FASTING 95 MG/DL (74-106); POTASSIUM SERUM 4.3 MMOL/L (3.5-5.1); SODIUM LEVEL 138 MMOL/L (136-145); TOTAL PROTEIN 6.3 G/DL (5.7-8.2)
[2023-04-29] MEDS: ASPIRIN 81MG ENTERIC TABLET PO SCH ×2 (08:21→19:55)
[2023-04-29] MEDS: ATORVASTATIN 20 MG TAB PO SCH (08:21)
[2023-04-29] MEDS: ENOXAPARIN 40MG/0.4ML SYRINGE (J1650 PER 10MG) SC SCH ×2 (08:21→11:59)
[2023-04-29] MEDS: DOCUSATE SODIUM 100MG CAPSULE PO SCH ×2 (08:22→19:55)
[2023-04-29 11:33] LABS: C REACTIVE PROTEIN QUANTITATIV < 0.40 MG/DL (<1.0)
[2023-04-29 11:36] LABS: VITAMIN B12 LEVEL 477 PG/ML (211-911)
[2023-04-29] MEDS: CARVedilol 3.125 MG TAB PO SCH ×2 (11:59→19:59)
[2023-04-29] MEDS: ramipriL 5 MG CAP PO SCH (11:59)
[2023-04-29 12:02] LABS: PROCALCITONIN <0.04 ng/ml
[2023-04-29 12:17] LABS: FOLATE 15.95 NG/ML (>5.4)
[2023-04-29] MEDS: levETIRAcetam 250MG TABLET (KEPPRA) PO SCH (19:56)
[2023-04-30 03:14] VITALS: BP 118/68; TEMP 97.8; O2SAT 96
[2023-04-30 05:04] LABS: BASO # 0.1 10^3/uL (0.0-0.2); BASO % 0.6 % (0.0-1.0); EOS # 0.1 10^3/uL (0.0-0.5); EOS % 1.4 % (0.0-3.0); HEMOGLOBIN 12.9 g/dl (13.5-17.5); LYMPH # 1.7 10^3/uL (1.5-5.0); LYMPH % 18.9 % (24.0-44.0); MEAN CORPUSCULAR HEMOGLOBIN 30.7 pg (27.0-33.0); MEAN CORPUSCULAR HGB CONC 33.9 g/dl (32.0-36.5); MEAN CORPUSCULAR VOLUME 90.5 fl (80.0-96.0); MONO # 0.9 10^3/uL (0.0-0.8); MONO % 10.7 % (2.0-8.0); NEUTROPHILS % 68.2 % (36.0-66.0); PLATELET COUNT, AUTOMATED 309 10^3/uL (150-450); WHITE BLOOD COUNT 8.8 10^3/uL (4.0-10.0)
[2023-04-30 05:14] VITALS: BP 120/68
[2023-04-30 05:32] LABS: BLOOD UREA NITROGEN 17 MG/DL (9-23); CALCIUM LEVEL 9.2 MG/DL (8.3-10.6); CARBON DIOXIDE LEVEL 27 MMOL/L (20-31); CHLORIDE LEVEL 104 MMOL/L (98-107); CREATININE FOR GFR 0.83 MG/DL (0.70-1.30); GLOMERULAR FILTRATION RATE > 60.0 (>49); GLUCOSE, FASTING 92 MG/DL (74-106); MAGNESIUM LEVEL 1.7 MG/DL (1.8-2.4); POTASSIUM SERUM 4.2 MMOL/L (3.5-5.1); SODIUM LEVEL 137 MMOL/L (136-145)
[2023-04-30 08:00] VITALS: BP 121/79; TEMP 97.8; O2SAT 96
[2023-04-30] MEDS ORDERED: MAG SULF 1GM/100ML (MAG RUN) 1 GM in IV 1 EA IV ONE (08:00)
[2023-04-30] MEDS: ATORVASTATIN 20 MG TAB PO SCH (08:08)
[2023-04-30] MEDS: ENOXAPARIN 40MG/0.4ML SYRINGE (J1650 PER 10MG) SC SCH ×2 (08:08→08:11)
[2023-04-30] MEDS: levETIRAcetam 250MG TABLET (KEPPRA) PO SCH (08:08)
[2023-04-30 08:09] VITALS: BP 120/68
[2023-04-30] MEDS: ASPIRIN 81MG ENTERIC TABLET PO SCH (08:09)
[2023-04-30] MEDS: DOCUSATE SODIUM 100MG CAPSULE PO SCH ×2 (08:09→09:00)
[2023-04-30] MEDS: CARVedilol 3.125 MG TAB PO SCH (08:09)
[2023-04-30] MEDS: ramipriL 5 MG CAP PO SCH (08:09)
[2023-04-30 12:00] VITALS: BP 114/64; TEMP 97.6; O2SAT 98
[2023-04-30] MEDS ORDERED: CARV3.12 PO (15:30)
== END 2023-04-30 16:08 | disposition home or self-care (01) | DRG 72 ==
LOC: M ED 13:10 → M ED INP 23:11 → M PCU 04-29 00:29
PROVIDERS: ADMIT Family Medicine; ATTEND Internal Medicine
DX: G93.41 Metabolic encephalopathy (principal); I16.0 Hypertensive urgency; E78.5 Hyperlipidemia, unspecified; M54.2 Cervicalgia; R00.0 Tachycardia, unspecified; I10 Essential (primary) hypertension; L40.8 Other psoriasis; F12.90 Cannabis use, unspecified, uncomplicated; I65.23 Occlusion and stenosis of bilateral carotid arteries; Z88.2 Allergy status to sulfonamides; Z88.8 Allergy status to other drugs, medicaments and biological substances; Z79.82 Long term (current) use of aspirin; Z79.899 Other long term (current) drug therapy

== ENCOUNTER 2023-05-02 12:43 | Emergency (ER) | payer OTHER, MEDICARE ==
[~2023-05-02] VITALS: Ht 175.3 cm; Wt 85.2 kg
[~2023-05-02 12:43] MED LIST changes: +ASPI-161 PO; +CARV3.12 PO; +SENN-111 PO
[2023-05-02 12:44] VITALS: TEMP 98.1
[2023-05-02] MEDS ORDERED: SERO50TA PO (16:12)
[2023-05-02 16:48] VITALS: BP 157/90; O2SAT 97
== END 2023-05-02 16:48 | disposition home or self-care (01) ==
LOC: M ED 12:43
DX: R41.89 Other symptoms and signs involving cognitive functions and awareness (principal); I10 Essential (primary) hypertension; E78.5 Hyperlipidemia, unspecified; F12.10 Cannabis abuse, uncomplicated; F10.10 Alcohol abuse, uncomplicated; Z88.2 Allergy status to sulfonamides; Z88.8 Allergy status to other drugs, medicaments and biological substances; Z79.82 Long term (current) use of aspirin; Z79.02 Long term (current) use of antithrombotics/antiplatelets; Z79.899 Other long term (current) drug therapy

== ENCOUNTER → 2023-05-03 | Outpatient (CLI) | payer OTHER, MEDICARE ==
[~2023-05-03] MED LIST changes: +SERO50TA PO
[2023-05-03 17:17] LABS: THYROID STIMULATING HORMONE 1.181 uIU/ML (0.55-4.78); TOTAL T3 101.9 NG/DL (60.0-181.0)
[2023-05-03 17:18] LABS: FREE T4 1.18 NG/DL (0.89-1.76)
== END ==
LOC: M PLALAB 15:13 → M LAB 15:13
PROVIDERS: ATTEND Family Medicine
DX: G93.40 Encephalopathy, unspecified (principal)

== ENCOUNTER → 2023-05-12 | Outpatient (CLI) | payer OTHER, MEDICARE ==
[~2023-05-12] MED LIST changes: +CARV6.25 PO; +QUET100T2 PO
== END ==
LOC: M SOG 07:58
PROVIDERS: ATTEND Orthopaedic Surgery
DX: Z96.641 Presence of right artificial hip joint (principal); Z47.1 Aftercare following joint replacement surgery; Z53.9 Procedure and treatment not carried out, unspecified reason

== ENCOUNTER 2023-05-16 20:25 | Observation (INO) | payer OTHER, MEDICARE ==
[~2023-05-16] VITALS: Ht 175.3 cm; Wt 84.5 kg
[2023-05-16 21:32] LABS: VENOUS BASE EXCESS -0.7 (-2.0-2.0); VENOUS HCO3 24.7 MMOL/L (23.0-27.0); VENOUS O2 SATURATION 78.6 % (60.0-80.0); VENOUS PARTIAL PRESSURE CO2 43.7 mmHg (38.0-50.0); VENOUS PARTIAL PRESSURE O2 44.7 mmHg (30.0-50.0); VENOUS STANDARD HCO3 23.4 MMOL/L
[2023-05-16 21:37] LABS: BASO # 0.1 10^3/uL (0.0-0.2); BASO % 0.5 % (0.0-1.0); EOS # 0.1 10^3/uL (0.0-0.5); EOS % 1.3 % (0.0-3.0); HEMOGLOBIN 13.2 g/dl (13.5-17.5); LYMPH # 2.3 10^3/uL (1.5-5.0); LYMPH % 22.4 % (24.0-44.0); MEAN CORPUSCULAR HEMOGLOBIN 30.4 pg (27.0-33.0); MEAN CORPUSCULAR VOLUME 92.2 fl (80.0-96.0); MONO # 0.9 10^3/uL (0.0-0.8); MONO % 8.8 % (2.0-8.0); NEUTROPHILS # 6.7 10^3/uL (1.5-8.5); NEUTROPHILS % 66.7 % (36.0-66.0); PLATELET COUNT, AUTOMATED 381 10^3/uL (150-450); RED BLOOD COUNT 4.34 10^6/uL (4.30-6.10)
[2023-05-16 22:08] LABS: CK-MB VALUE MASS < 1.0 NG/ML (<3.6); ETHYL ALCOHOL (ETHANOL) 0.003 % (0.000-0.010)
[2023-05-16 22:09] LABS: ACETAMINOPHEN LEVEL < 2.0 UG/ML (10.0-20.0); SALICYLATE LEVEL < 3.0 MG/DL (<30)
[2023-05-16 22:10] LABS: ALBUMIN 3.7 G/DL (3.2-5.2); ALKALINE PHOSPHATASE 80 U/L (46-116); ALT/SGPT 34 U/L (7.0-40); AST/SGOT 18 U/L (<34); BILIRUBIN,DIRECT 0.3 MG/DL (<0.4); BILIRUBIN,TOTAL 0.7 MG/DL (0.3-1.2); BLOOD UREA NITROGEN 23 MG/DL (9-23); CALCIUM LEVEL 9.2 MG/DL (8.3-10.6); CARBON DIOXIDE LEVEL 28 MMOL/L (20-31); CHLORIDE LEVEL 109 MMOL/L (98-107); CPK CREATINE PHOSPHOKINASE 41 U/L (46-171); CREATININE FOR GFR 0.85 MG/DL (0.70-1.30); GLOMERULAR FILTRATION RATE > 60.0 (>49); GLUCOSE, FASTING 82 MG/DL (74-106); MB/CK RELATIVE INDEX 2.43 (< OR =4); POTASSIUM SERUM 4.1 MMOL/L (3.5-5.1); SODIUM LEVEL 143 MMOL/L (136-145); TOTAL PROTEIN 6.2 G/DL (5.7-8.2)
[2023-05-16 22:11] LABS: THYROID STIMULATING HORMONE 1.971 uIU/ML (0.55-4.78)
[2023-05-16 22:18] LABS: OSMOLALITY SERUM 293 MOSM/KG (280-301); RSV AMPLIFICATION NEGATIVE (NEGATIVE)
[2023-05-16 23:38] LABS: CK-MB VALUE MASS < 1.0 NG/ML (<3.6)
[2023-05-17 00:11] LABS: CPK CREATINE PHOSPHOKINASE 43 U/L (46-171); MB/CK RELATIVE INDEX 2.32 (< OR =4)
[2023-05-17 00:32] LABS: AMPHETAMINES LEVEL URINE NEGATIVE (NEGATIVE); BARBITURATES URINE NEGATIVE (NEGATIVE); COCAINE METABOLITE URINE NEGATIVE (NEGATIVE); PHENCYCLIDINE URINE NEGATIVE (NEGATIVE)
[2023-05-17 00:33] LABS: BENZODIAZEPINES URINE NEGATIVE (NEGATIVE); METHADONE URINE NEGATIVE (NEGATIVE); OPIATES URINE NEGATIVE (NEGATIVE)
[2023-05-17 00:42] LABS: CANNABINOIDS URINE POSITIVE (NEGATIVE)
[2023-05-17] MEDS: ramipriL 5 MG CAP PO SCH ×2 (03:53→21:00)
[2023-05-17] MEDS ORDERED: CARVedilol 6.25 MG TAB PO SCH (09:00)
[2023-05-17] MEDS ORDERED: QUEtiapine FUMARATE 100 MG TAB PO SCH (09:00)
[2023-05-17] MEDS ORDERED: ATORVASTATIN 20 MG TAB PO SCH (09:00)
[2023-05-17] MEDS ORDERED: VITAMIN D 1,000 INTERNATIONAL UNITS TABLET PO SCH (09:00)
[2023-05-17] MEDS ORDERED: ramipriL 5 MG CAP PO SCH (09:00)
[2023-05-17] MEDS ORDERED: MED REC IN PROGRESS XX SCH (12:50)
[2023-05-17] MEDS ORDERED: MOM 30ML SUSPENSION UDC PO PRN (14:35)
[2023-05-17] MEDS ORDERED: MAALOX 30 ML SUSP *UDC PO PRN (14:35)
[2023-05-17 14:38] LABS: APPEARANCE, CSF CLEAR (CLEAR); COLOR, CSF COLORLESS (COLORLESS); CSF TUBE# CELL CNT TUBE 1
[2023-05-17 14:50] LABS: CSF TUBE# TP TUBE 2; TOTAL PROTEIN,CSF 85.8 MG/DL (15-45)
[2023-05-17 14:51] LABS: CSF TUBE# GLU TUBE 2
[2023-05-17] MEDS ORDERED: HOME MED LIST COMPLETE! XX SCH (15:00)
[2023-05-17] MEDS: QUEtiapine FUMARATE 100 MG TAB PO SCH (21:00)
[2023-05-17] MEDS: DOCUSATE SODIUM 100MG CAPSULE PO SCH (21:00)
[2023-05-17] MEDS: CARVedilol 6.25 MG TAB PO SCH (21:00)
[2023-05-17] MEDS ORDERED: LORazepam 2 MG/ML 1ML VIAL IM ONE (23:55)
[2023-05-18] MEDS ORDERED: LORazepam 2 MG/ML 1ML VIAL As Ordered ONE (00:09)
[2023-05-18] MEDS ORDERED: OLANZapine INTRAMUSCULAR 10MG VIAL IM STA (00:40)
[2023-05-18] MEDS: ACETAMINOPHEN TAB 650MG DOSE (2X325MG) PO PRN (01:55)
[2023-05-18] MEDS: DOCUSATE SODIUM 100MG CAPSULE PO SCH ×3 (02:46→21:17)
[2023-05-18] MEDS: QUEtiapine FUMARATE 100 MG TAB PO SCH ×3 (02:46→21:18)
[2023-05-18] MEDS: CARVedilol 6.25 MG TAB PO SCH ×3 (02:47→21:18)
[2023-05-18 03:00] VITALS: BP 127/72; TEMP 97.8; O2SAT 97
[2023-05-18 05:17] LABS: BASO % 0.5 % (0.0-1.0); EOS % 0.3 % (0.0-3.0); HEMATOCRIT 40.5 % (42.0-52.0); HEMOGLOBIN 13.1 g/dl (13.5-17.5); LYMPH # 1.6 10^3/uL (1.5-5.0); LYMPH % 18.6 % (24.0-44.0); MEAN CORPUSCULAR HEMOGLOBIN 29.6 pg (27.0-33.0); MEAN CORPUSCULAR HGB CONC 32.3 g/dl (32.0-36.5); MEAN CORPUSCULAR VOLUME 91.6 fl (80.0-96.0); MONO # 0.9 10^3/uL (0.0-0.8); NEUTROPHILS # 6.1 10^3/uL (1.5-8.5); NEUTROPHILS % 70.4 % (36.0-66.0); PLATELET COUNT, AUTOMATED 344 10^3/uL (150-450); RED BLOOD COUNT 4.42 10^6/uL (4.30-6.10); WHITE BLOOD COUNT 8.7 10^3/uL (4.0-10.0)
[2023-05-18 05:39] LABS: ALBUMIN 3.6 G/DL (3.2-5.2); ALKALINE PHOSPHATASE 87 U/L (46-116); ALT/SGPT 28 U/L (7.0-40); AST/SGOT 18 U/L (<34); BILIRUBIN,TOTAL 0.9 MG/DL (0.3-1.2); BLOOD UREA NITROGEN 22 MG/DL (9-23); CALCIUM LEVEL 9.4 MG/DL (8.3-10.6); CARBON DIOXIDE LEVEL 30 MMOL/L (20-31); CHLORIDE LEVEL 105 MMOL/L (98-107); CREATININE FOR GFR 0.99 MG/DL (0.70-1.30); GLOMERULAR FILTRATION RATE > 60.0 (>49); GLUCOSE, FASTING 104 MG/DL (74-106); MAGNESIUM LEVEL 1.9 MG/DL (1.8-2.4); POTASSIUM SERUM 4.4 MMOL/L (3.5-5.1); SODIUM LEVEL 143 MMOL/L (136-145); TOTAL PROTEIN 6.1 G/DL (5.7-8.2)
[2023-05-18 07:51] VITALS: BP 130/71; TEMP 97.7; O2SAT 95
[2023-05-18] MEDS: ramipriL 5 MG CAP PO SCH ×2 (08:08→21:17)
[2023-05-18] MEDS: VITAMIN D 1,000 INTERNATIONAL UNITS TABLET PO SCH (08:08)
[2023-05-18] MEDS: ATORVASTATIN 20 MG TAB PO SCH (08:08)
[2023-05-18] MEDS: ENOXAPARIN 40MG/0.4ML SYRINGE (J1650 PER 10MG) SC SCH (08:11)
[2023-05-18] MEDS ORDERED: PROHANCE 279.3MG/ML 5ML VIAL As Ordered ONE (12:29)
[2023-05-18] MEDS ORDERED: PROHANCE 279.3MG/ML 15ML VIAL As Ordered ONE (12:30)
[2023-05-18 15:48] VITALS: BP 124/73; TEMP 97.9; O2SAT 98
[2023-05-18 20:29] VITALS: BP 121/63; TEMP 97.7; O2SAT 99
[2023-05-18] MEDS ORDERED: DIVALPROEX 250MG *ER* TAB PO SCH (21:00)
[2023-05-18 22:30] VITALS: BP 137/75; TEMP 97.7; O2SAT 95
[2023-05-19 05:20] VITALS: BP 134/76; TEMP 97.7; O2SAT 93
[2023-05-19 06:22] LABS: BASO # 0.1 10^3/uL (0.0-0.2); BASO % 0.8 % (0.0-1.0); EOS # 0.2 10^3/uL (0.0-0.5); EOS % 2.2 % (0.0-3.0); HEMATOCRIT 40.2 % (42.0-52.0); HEMOGLOBIN 13.5 g/dl (13.5-17.5); LYMPH # 2.1 10^3/uL (1.5-5.0); LYMPH % 29.3 % (24.0-44.0); MEAN CORPUSCULAR HEMOGLOBIN 30.7 pg (27.0-33.0); MEAN CORPUSCULAR HGB CONC 33.6 g/dl (32.0-36.5); MEAN CORPUSCULAR VOLUME 91.4 fl (80.0-96.0); MONO # 0.7 10^3/uL (0.0-0.8); NEUTROPHILS # 4.1 10^3/uL (1.5-8.5); NEUTROPHILS % 57.4 % (36.0-66.0); PLATELET COUNT, AUTOMATED 360 10^3/uL (150-450); WHITE BLOOD COUNT 7.2 10^3/uL (4.0-10.0)
[2023-05-19 06:40] LABS: ALBUMIN 3.6 G/DL (3.2-5.2); ALKALINE PHOSPHATASE 110 U/L (46-116); ALT/SGPT 117 U/L (7.0-40); AST/SGOT 53 U/L (<34); BILIRUBIN,TOTAL 0.8 MG/DL (0.3-1.2); BLOOD UREA NITROGEN 16 MG/DL (9-23); CALCIUM LEVEL 9.3 MG/DL (8.3-10.6); CARBON DIOXIDE LEVEL 30 MMOL/L (20-31); CHLORIDE LEVEL 106 MMOL/L (98-107); CREATININE FOR GFR 0.85 MG/DL (0.70-1.30); GLOMERULAR FILTRATION RATE > 60.0 (>49); GLUCOSE, FASTING 88 MG/DL (74-106); MAGNESIUM LEVEL 1.9 MG/DL (1.8-2.4); POTASSIUM SERUM 4.3 MMOL/L (3.5-5.1); SODIUM LEVEL 143 MMOL/L (136-145); TOTAL PROTEIN 6.2 G/DL (5.7-8.2)
[2023-05-19] MEDS: DOCUSATE SODIUM 100MG CAPSULE PO SCH ×3 (09:00→21:59)
[2023-05-19] MEDS ORDERED: LORazepam 2 MG/ML 1ML VIAL IV STA (09:14)
[2023-05-19] MEDS: ENOXAPARIN 40MG/0.4ML SYRINGE (J1650 PER 10MG) SC SCH (09:34)
[2023-05-19] MEDS: VITAMIN D 1,000 INTERNATIONAL UNITS TABLET PO SCH (09:35)
[2023-05-19] MEDS: QUEtiapine FUMARATE 100 MG TAB PO SCH ×2 (09:35→21:59)
[2023-05-19] MEDS: ramipriL 5 MG CAP PO SCH ×2 (09:37→21:59)
[2023-05-19] MEDS: CARVedilol 6.25 MG TAB PO SCH ×2 (09:37→21:59)
[2023-05-19] MEDS: ATORVASTATIN 20 MG TAB PO SCH (09:37)
[2023-05-19 10:07] LABS: THYROGLOBULIN ANTIBODY < 15.0 U/ML (<60.0); THYROID PEROXIDASE ANTIBODY < 28.0 U/ML (<60.0)
[2023-05-19] MEDS: ACETAMINOPHEN TAB 650MG DOSE (2X325MG) PO PRN (11:50)
[2023-05-19 14:00] VITALS: BP 90/50; TEMP 97.7; O2SAT 96
[2023-05-19 15:41] LABS: HEPATITIS C VIRUS ABY INDEX 0.04 INDEX (<0.8)
[2023-05-19 15:42] LABS: HEPATITIS B CORE ANTIBODY IGM NEGATIVE (NEGATIVE)
[2023-05-19] MEDS: DIVALPROEX 250MG *ER* TAB PO SCH (17:57)
[2023-05-19 18:45] VITALS: BP 112/64
[2023-05-20 05:40] VITALS: BP 131/79; TEMP 97.9; O2SAT 94
[2023-05-20 06:17] LABS: BASO % 0.6 % (0.0-1.0); EOS # 0.1 10^3/uL (0.0-0.5); EOS % 1.7 % (0.0-3.0); HEMATOCRIT 38.3 % (42.0-52.0); HEMOGLOBIN 12.8 g/dl (13.5-17.5); LYMPH # 2.1 10^3/uL (1.5-5.0); LYMPH % 29.2 % (24.0-44.0); MEAN CORPUSCULAR HEMOGLOBIN 30.3 pg (27.0-33.0); MEAN CORPUSCULAR HGB CONC 33.4 g/dl (32.0-36.5); MEAN CORPUSCULAR VOLUME 90.5 fl (80.0-96.0); MONO # 0.8 10^3/uL (0.0-0.8); MONO % 10.6 % (2.0-8.0); NEUTROPHILS # 4.1 10^3/uL (1.5-8.5); NEUTROPHILS % 57.6 % (36.0-66.0); PLATELET COUNT, AUTOMATED 340 10^3/uL (150-450); RED BLOOD COUNT 4.23 10^6/uL (4.30-6.10); WHITE BLOOD COUNT 7.1 10^3/uL (4.0-10.0)
[2023-05-20 07:20] LABS: ALBUMIN 3.6 G/DL (3.2-5.2); ALKALINE PHOSPHATASE 101 U/L (46-116); ALT/SGPT 80 U/L (7.0-40); AST/SGOT 24 U/L (<34); BILIRUBIN,TOTAL 0.7 MG/DL (0.3-1.2); BLOOD UREA NITROGEN 25 MG/DL (9-23); CARBON DIOXIDE LEVEL 27 MMOL/L (20-31); CHLORIDE LEVEL 106 MMOL/L (98-107); CREATININE FOR GFR 0.91 MG/DL (0.70-1.30); GLOMERULAR FILTRATION RATE > 60.0 (>49); GLUCOSE, FASTING 84 MG/DL (74-106); MAGNESIUM LEVEL 1.9 MG/DL (1.8-2.4); POTASSIUM SERUM 4.3 MMOL/L (3.5-5.1); SODIUM LEVEL 142 MMOL/L (136-145); TOTAL PROTEIN 6.2 G/DL (5.7-8.2)
[2023-05-20] MEDS: DOCUSATE SODIUM 100MG CAPSULE PO SCH ×3 (08:01→19:17)
[2023-05-20] MEDS: QUEtiapine FUMARATE 100 MG TAB PO SCH ×2 (08:01→09:00)
[2023-05-20] MEDS: VITAMIN D 1,000 INTERNATIONAL UNITS TABLET PO SCH ×2 (08:01→09:00)
[2023-05-20] MEDS: ramipriL 5 MG CAP PO SCH ×3 (08:01→19:17)
[2023-05-20] MEDS: CARVedilol 6.25 MG TAB PO SCH ×3 (08:02→19:18)
[2023-05-20] MEDS: ATORVASTATIN 20 MG TAB PO SCH ×2 (08:02→09:00)
[2023-05-20] MEDS: ENOXAPARIN 40MG/0.4ML SYRINGE (J1650 PER 10MG) SC SCH (08:03)
[2023-05-20 14:00] VITALS: BP 123/76; TEMP 97.5; O2SAT 95
[2023-05-20] MEDS ORDERED: OLANZapine INTRAMUSCULAR 10MG VIAL IM PRN (15:30)
[2023-05-20] MEDS: DIVALPROEX 250MG *ER* TAB PO SCH (17:26)
[2023-05-20] MEDS: ARIPiprazole 2 MG TAB PO SCH (17:26)
[2023-05-20] MEDS: QUEtiapine FUMARATE 200 MG TAB PO SCH (19:17)
[2023-05-20] MEDS: ACETAMINOPHEN TAB 650MG DOSE (2X325MG) PO PRN (19:21)
[2023-05-20 20:10] VITALS: BP 144/86; TEMP 97.9; O2SAT 96
[2023-05-20] MEDS: LORazepam 1 MG TAB PO PRN (21:01)
[2023-05-21 05:29] VITALS: BP 111/66; TEMP 97.9; O2SAT 98
[2023-05-21 06:50] LABS: BASO # 0.1 10^3/uL (0.0-0.2); BASO % 0.9 % (0.0-1.0); EOS # 0.2 10^3/uL (0.0-0.5); EOS % 2.7 % (0.0-3.0); LYMPH % 34.2 % (24.0-44.0); MEAN CORPUSCULAR HEMOGLOBIN 30.8 pg (27.0-33.0); MEAN CORPUSCULAR HGB CONC 33.3 g/dl (32.0-36.5); MEAN CORPUSCULAR VOLUME 92.3 fl (80.0-96.0); MONO # 0.7 10^3/uL (0.0-0.8); MONO % 11.1 % (2.0-8.0); NEUTROPHILS % 50.9 % (36.0-66.0); PLATELET COUNT, AUTOMATED 307 10^3/uL (150-450); WHITE BLOOD COUNT 5.9 10^3/uL (4.0-10.0)
[2023-05-21 07:44] LABS: ALBUMIN 3.1 G/DL (3.2-5.2); ALKALINE PHOSPHATASE 88 U/L (46-116); ALT/SGPT 53 U/L (7.0-40); AST/SGOT 14 U/L (<34); BILIRUBIN,TOTAL 0.8 MG/DL (0.3-1.2); BLOOD UREA NITROGEN 21 MG/DL (9-23); CALCIUM LEVEL 8.9 MG/DL (8.3-10.6); CARBON DIOXIDE LEVEL 28 MMOL/L (20-31); CHLORIDE LEVEL 105 MMOL/L (98-107); CREATININE FOR GFR 0.79 MG/DL (0.70-1.30); GLOMERULAR FILTRATION RATE > 60.0 (>49); GLUCOSE, FASTING 76 MG/DL (74-106); MAGNESIUM LEVEL 1.9 MG/DL (1.8-2.4); POTASSIUM SERUM 4.3 MMOL/L (3.5-5.1); SODIUM LEVEL 140 MMOL/L (136-145); TOTAL PROTEIN 5.5 G/DL (5.7-8.2)
[2023-05-21] MEDS: ATORVASTATIN 20 MG TAB PO SCH (08:38)
[2023-05-21] MEDS: QUEtiapine FUMARATE 100 MG TAB PO SCH (08:40)
[2023-05-21] MEDS: ACETAMINOPHEN TAB 650MG DOSE (2X325MG) PO PRN ×2 (08:41→13:56)
[2023-05-21] MEDS: DOCUSATE SODIUM 100MG CAPSULE PO SCH ×2 (08:41→20:50)
[2023-05-21] MEDS: VITAMIN D 1,000 INTERNATIONAL UNITS TABLET PO SCH (08:41)
[2023-05-21] MEDS: CARVedilol 6.25 MG TAB PO SCH ×2 (08:42→20:50)
[2023-05-21] MEDS: ramipriL 5 MG CAP PO SCH ×2 (08:42→20:49)
[2023-05-21] MEDS: ENOXAPARIN 40MG/0.4ML SYRINGE (J1650 PER 10MG) SC SCH (08:48)
[2023-05-21 14:00] VITALS: BP 120/66; TEMP 97.9; O2SAT 98
[2023-05-21] MEDS: DIVALPROEX 250MG *ER* TAB PO SCH (18:03)
[2023-05-21] MEDS: ARIPiprazole 2 MG TAB PO SCH (18:03)
[2023-05-21] MEDS: QUEtiapine FUMARATE 200 MG TAB PO SCH (20:51)
[2023-05-21] MEDS: LORazepam 1 MG TAB PO PRN (20:51)
[2023-05-21 21:11] VITALS: BP 129/72; TEMP 97.9; O2SAT 96
[2023-05-22 06:25] VITALS: BP 126/74; TEMP 97.5; O2SAT 96
[2023-05-22 07:16] LABS: BASO % 0.8 % (0.0-1.0); EOS # 0.2 10^3/uL (0.0-0.5); EOS % 3.1 % (0.0-3.0); HEMOGLOBIN 12.8 g/dl (13.5-17.5); LYMPH # 1.8 10^3/uL (1.5-5.0); LYMPH % 36.9 % (24.0-44.0); MEAN CORPUSCULAR HEMOGLOBIN 30.5 pg (27.0-33.0); MEAN CORPUSCULAR HGB CONC 32.8 g/dl (32.0-36.5); MEAN CORPUSCULAR VOLUME 93.1 fl (80.0-96.0); MONO # 0.5 10^3/uL (0.0-0.8); MONO % 9.2 % (2.0-8.0); NEUTROPHILS # 2.4 10^3/uL (1.5-8.5); NEUTROPHILS % 49.8 % (36.0-66.0); PLATELET COUNT, AUTOMATED 330 10^3/uL (150-450); RED BLOOD COUNT 4.19 10^6/uL (4.30-6.10); WHITE BLOOD COUNT 4.9 10^3/uL (4.0-10.0)
[2023-05-22 07:44] LABS: ALBUMIN 3.4 G/DL (3.2-5.2); ALKALINE PHOSPHATASE 92 U/L (46-116); ALT/SGPT 46 U/L (7.0-40); AST/SGOT 10 U/L (<34); BILIRUBIN,TOTAL 0.7 MG/DL (0.3-1.2); BLOOD UREA NITROGEN 18 MG/DL (9-23); CALCIUM LEVEL 9.1 MG/DL (8.3-10.6); CARBON DIOXIDE LEVEL 30 MMOL/L (20-31); CHLORIDE LEVEL 104 MMOL/L (98-107); CREATININE FOR GFR 0.85 MG/DL (0.70-1.30); GLOMERULAR FILTRATION RATE > 60.0 (>49); GLUCOSE, FASTING 83 MG/DL (74-106); POTASSIUM SERUM 4.7 MMOL/L (3.5-5.1); SODIUM LEVEL 139 MMOL/L (136-145); TOTAL PROTEIN 6.1 G/DL (5.7-8.2)
[2023-05-22] MEDS: VITAMIN D 1,000 INTERNATIONAL UNITS TABLET PO SCH (08:15)
[2023-05-22] MEDS: ATORVASTATIN 20 MG TAB PO SCH (08:15)
[2023-05-22] MEDS: ENOXAPARIN 40MG/0.4ML SYRINGE (J1650 PER 10MG) SC SCH (08:15)
[2023-05-22] MEDS: DOCUSATE SODIUM 100MG CAPSULE PO SCH ×2 (08:16→20:21)
[2023-05-22] MEDS: CARVedilol 6.25 MG TAB PO SCH ×2 (08:16→20:22)
[2023-05-22] MEDS: ramipriL 5 MG CAP PO SCH ×2 (08:17→20:23)
[2023-05-22] MEDS: QUEtiapine FUMARATE 100 MG TAB PO SCH (08:18)
[2023-05-22] MEDS: ACETAMINOPHEN TAB 650MG DOSE (2X325MG) PO PRN (12:15)
[2023-05-22 14:00] VITALS: BP 120/71; TEMP 97.9; O2SAT 96
[2023-05-22] MEDS: ARIPiprazole 2 MG TAB PO SCH (17:03)
[2023-05-22] MEDS: DIVALPROEX 250MG *ER* TAB PO SCH (17:03)
[2023-05-22 20:04] VITALS: BP 118/72; TEMP 97.9; O2SAT 95
[2023-05-22] MEDS: QUEtiapine FUMARATE 200 MG TAB PO SCH (20:21)
[2023-05-23 05:05] VITALS: BP 130/78; TEMP 97.5; O2SAT 95
[2023-05-23 05:40] LABS: BASO # 0.1 10^3/uL (0.0-0.2); BASO % 1.1 % (0.0-1.0); EOS # 0.2 10^3/uL (0.0-0.5); EOS % 3.3 % (0.0-3.0); HEMATOCRIT 39.9 % (42.0-52.0); HEMOGLOBIN 12.8 g/dl (13.5-17.5); LYMPH # 2.5 10^3/uL (1.5-5.0); LYMPH % 46.7 % (24.0-44.0); MEAN CORPUSCULAR HEMOGLOBIN 30.2 pg (27.0-33.0); MEAN CORPUSCULAR HGB CONC 32.1 g/dl (32.0-36.5); MEAN CORPUSCULAR VOLUME 94.1 fl (80.0-96.0); MONO # 0.6 10^3/uL (0.0-0.8); MONO % 10.5 % (2.0-8.0); NEUTROPHILS # 2.1 10^3/uL (1.5-8.5); NEUTROPHILS % 38.2 % (36.0-66.0); PLATELET COUNT, AUTOMATED 259 10^3/uL (150-450); RED BLOOD COUNT 4.24 10^6/uL (4.30-6.10); WHITE BLOOD COUNT 5.4 10^3/uL (4.0-10.0)
[2023-05-23 06:02] LABS: ALBUMIN 3.3 G/DL (3.2-5.2); ALKALINE PHOSPHATASE 85 U/L (46-116); ALT/SGPT 39 U/L (7.0-40); AST/SGOT 12 U/L (<34); BILIRUBIN,TOTAL 0.5 MG/DL (0.3-1.2); BLOOD UREA NITROGEN 18 MG/DL (9-23); CALCIUM LEVEL 8.8 MG/DL (8.3-10.6); CARBON DIOXIDE LEVEL 31 MMOL/L (20-31); CHLORIDE LEVEL 107 MMOL/L (98-107); CREATININE FOR GFR 0.85 MG/DL (0.70-1.30); GLOMERULAR FILTRATION RATE > 60.0 (>49); GLUCOSE, FASTING 80 MG/DL (74-106); POTASSIUM SERUM 4.8 MMOL/L (3.5-5.1); SODIUM LEVEL 142 MMOL/L (136-145); TOTAL PROTEIN 5.8 G/DL (5.7-8.2)
[2023-05-23] MEDS: DOCUSATE SODIUM 100MG CAPSULE PO SCH ×3 (09:00→20:13)
[2023-05-23] MEDS: VITAMIN D 1,000 INTERNATIONAL UNITS TABLET PO SCH (09:14)
[2023-05-23] MEDS: ENOXAPARIN 40MG/0.4ML SYRINGE (J1650 PER 10MG) SC SCH (09:14)
[2023-05-23] MEDS: ATORVASTATIN 20 MG TAB PO SCH (09:14)
[2023-05-23] MEDS: CARVedilol 6.25 MG TAB PO SCH ×2 (09:16→20:13)
[2023-05-23] MEDS: ramipriL 5 MG CAP PO SCH ×2 (09:16→20:13)
[2023-05-23] MEDS: QUEtiapine FUMARATE 100 MG TAB PO SCH (09:42)
[2023-05-23 14:00] VITALS: BP 123/75; TEMP 97.9; O2SAT 98
[2023-05-23] MEDS: DIVALPROEX 250MG *ER* TAB PO SCH (18:17)
[2023-05-23] MEDS: ARIPiprazole 2 MG TAB PO SCH (18:17)
[2023-05-23 20:11] VITALS: BP 121/78; TEMP 98.2; O2SAT 95
[2023-05-23] MEDS: QUEtiapine FUMARATE 200 MG TAB PO SCH (20:13)
[2023-05-23] MEDS ORDERED: traZODone 100 MG TAB PO SCH (21:00)
[2023-05-24 05:22] VITALS: BP 122/77; TEMP 98.2; O2SAT 100
[2023-05-24 08:46] VITALS: BP 122/77
[2023-05-24] MEDS: ATORVASTATIN 20 MG TAB PO SCH (08:46)
[2023-05-24] MEDS: ramipriL 5 MG CAP PO SCH (08:46)
[2023-05-24] MEDS: QUEtiapine FUMARATE 100 MG TAB PO SCH (08:46)
[2023-05-24] MEDS: VITAMIN D 1,000 INTERNATIONAL UNITS TABLET PO SCH (08:46)
[2023-05-24] MEDS: DOCUSATE SODIUM 100MG CAPSULE PO SCH (08:46)
[2023-05-24] MEDS: CARVedilol 6.25 MG TAB PO SCH (08:46)
[2023-05-24] MEDS: ENOXAPARIN 40MG/0.4ML SYRINGE (J1650 PER 10MG) SC SCH (08:47)
[2023-05-24] MEDS ORDERED: TRAZ-257 PO (11:49)
[2023-05-24] MEDS ORDERED: QUET100T2 PO (11:49)
[2023-05-24] MEDS ORDERED: QUET200T2 PO (11:49)
[2023-05-24] MEDS ORDERED: DEPA250T2 PO (11:49)
[2023-05-24] MEDS ORDERED: ABIL1TAB13 PO (14:06)
== END 2023-05-24 14:39 | disposition home or self-care (01) ==
LOC: M ED 20:25 → M ED INP 05-17 14:34 → UNDOADMOB 05-17 14:34 → M PCU 05-18 02:53 → M ED INP 05-18 02:53 → M MSPAV 05-18 22:27 → M PCU 05-18 22:27 → UNDODISOB 05-24 14:39
PROVIDERS: ADMIT Internal Medicine; ATTEND Internal Medicine
DX: R41.89 Other symptoms and signs involving cognitive functions and awareness (principal); I10 Essential (primary) hypertension; E78.5 Hyperlipidemia, unspecified; M54.2 Cervicalgia; L40.9 Psoriasis, unspecified; E55.9 Vitamin D deficiency, unspecified; F32.A Depression, unspecified; Z79.899 Other long term (current) drug therapy; Z88.2 Allergy status to sulfonamides; Z88.8 Allergy status to other drugs, medicaments and biological substances
CPT/HCPCS: 36415; 62270; 70450; 70553; 71045; 76000; 80048; 80053; 80076; 80143; 80307; 81001; 82077; 82140; 82550; 82553; 82803; 82945; 83605; 83735; 83916; 83930; 84145; 84157; 84443; 84484; 85025; 86255; 86376; 86705; 86709; 86800; 86803; 87070; 87205; 87340; 87483; 87631; 89050; 93005; 93041; 94760; 95819; 96372; 96374; 99285; A9576; J1650; J2060; S0166

== ENCOUNTER → 2023-10-07 | Outpatient (CLI) | payer OTHER, MEDICARE ==
[~2023-10-07] MED LIST changes: +ABIL1TAB13 PO; -ASPI-161 PO; +ASPI-615 PO; +DEPA250T2 PO; +QUET200T2 PO; +TRAZ-257 PO
== END ==
LOC: M SOG 07:54
PROVIDERS: ATTEND Orthopaedic Surgery
DX: Z96.641 Presence of right artificial hip joint (principal)

== ENCOUNTER → 2023-11-01 | Outpatient (REF) | payer OTHER, MEDICARE | LOC: M SFHCPLAZ 13:50 | PROVIDERS: ATTEND Family Medicine | DX: L57.0 Actinic keratosis (principal) ==

== ENCOUNTER → 2023-11-08 | Outpatient (CLI) | payer OTHER, MEDICARE ==
[2023-11-08 10:25] LABS: HEMOGLOBIN A1c 5.5 % (4.0-6.0)
[2023-11-08 10:31] LABS: PSA SCREENING 2.49 NG/ML (< 4.00)
[2023-11-08 10:33] LABS: ALBUMIN 4.1 G/DL (3.2-5.2); ALKALINE PHOSPHATASE 78 U/L (46-116); ALT/SGPT 27 U/L (7.0-40); AST/SGOT 15 U/L (<34); BILIRUBIN,TOTAL 0.6 MG/DL (0.3-1.2); BLOOD UREA NITROGEN 22 MG/DL (9-23); CALCIUM LEVEL 9.5 MG/DL (8.3-10.6); CARBON DIOXIDE LEVEL 32 MMOL/L (20-31); CHLORIDE LEVEL 108 MMOL/L (98-107); CHOLESTEROL LEVEL 163 MG/DL (<200); CHOLESTEROL RISK RATIO 3.39 (<5); CREATININE FOR GFR 0.94 MG/DL (0.70-1.30); GLOMERULAR FILTRATION RATE > 60.0 (>49); GLUCOSE, FASTING 101 MG/DL (74-106); LDL CHOLESTEROL 101.6 MG/DL (<100); MAGNESIUM LEVEL 2.1 MG/DL (1.8-2.4); POTASSIUM SERUM 4.9 MMOL/L (3.5-5.1); SODIUM LEVEL 141 MMOL/L (136-145); TOTAL PROTEIN 6.7 G/DL (5.7-8.2); TRIGLYCERIDES LEVEL 67 MG/DL (<150)
[2023-11-08 10:34] LABS: PTH INTACT 54.5 PG/ML (18.5-88.0)
[2023-11-08 10:35] LABS: TOTAL 25(OH) VITAMIN D 44.1 NG/ML (20.0-100.0)
== END ==
LOC: M LAB 08:57
PROVIDERS: ATTEND Family Medicine
DX: I10 Essential (primary) hypertension (principal); Z12.5 Encounter for screening for malignant neoplasm of prostate; E55.9 Vitamin D deficiency, unspecified; R73.01 Impaired fasting glucose; E78.5 Hyperlipidemia, unspecified
CPT/HCPCS: 36415; 80053; 80061; 82306; 83036; 83525; 83735; 83880; 83970; G0103

== ENCOUNTER → 2024-03-30 | Outpatient (CLI) | payer OTHER, MEDICARE ==
[~2024-03-30] MED LIST changes: -RAMI1CAP24 PO; +RAMI5CAP60 PO
== END ==
LOC: M RAD 09:51
PROVIDERS: ATTEND Orthopaedic Surgery
DX: Z96.641 Presence of right artificial hip joint (principal); Z47.1 Aftercare following joint replacement surgery

== ENCOUNTER → 2024-06-27 | Outpatient (CLI) | payer OTHER, MEDICARE ==
[~2024-06-27] MED LIST changes: -SENN-111 PO; +SENN-165 PO
== END ==
LOC: M WUC 09:31
PROVIDERS: ATTEND Nurse Practitioner Family
DX: R05.9 Cough, unspecified (principal); I70.0 Atherosclerosis of aorta; R91.8 Other nonspecific abnormal finding of lung field

== ENCOUNTER → 2024-07-11 | Outpatient (CLI) | payer OTHER, MEDICARE ==
[2024-07-11 16:03] LABS: ALKALINE PHOSPHATASE 81 U/L (40-129); ALT/SGPT 36 U/L (7.0-40); AST/SGOT 21 U/L (<34); BILIRUBIN,TOTAL 0.9 MG/DL (0.3-1.2); BLOOD UREA NITROGEN 22 MG/DL (9-23); CALCIUM LEVEL 9.8 MG/DL (8.3-10.6); CARBON DIOXIDE LEVEL 28 MMOL/L (20-31); CHLORIDE LEVEL 107 MMOL/L (98-107); CHOLESTEROL LEVEL 205 MG/DL (<200); CHOLESTEROL RISK RATIO 3.95 (<5); GLOMERULAR FILTRATION RATE > 60.0 (>49); GLUCOSE, FASTING 91 MG/DL (74-106); HDL CHOLESTEROL 51.8 MG/DL (>40); LDL CHOLESTEROL 135.4 MG/DL (<100); NON-HDL-C 153.2 MG/DL; POTASSIUM SERUM 4.9 MMOL/L (3.5-5.1); SODIUM LEVEL 142 MMOL/L (136-145); TOTAL PROTEIN 7.1 G/DL (5.7-8.2); TRIGLYCERIDES LEVEL 89 MG/DL (<150)
[2024-07-11 16:08] LABS: PSA SCREENING 2.52 NG/ML (< 4.00)
[2024-07-11 16:11] LABS: PTH INTACT 70.5 PG/ML (18.5-88.0)
[2024-07-11 16:16] LABS: HEMOGLOBIN A1c 5.5 % (4.0-6.0)
== END ==
LOC: M PLALAB 12:26
PROVIDERS: ATTEND Family Medicine
DX: I10 Essential (primary) hypertension (principal); R73.01 Impaired fasting glucose; E78.5 Hyperlipidemia, unspecified; Z12.5 Encounter for screening for malignant neoplasm of prostate; E55.9 Vitamin D deficiency, unspecified
CPT/HCPCS: 36415; 80053; 80061; 82306; 83036; 83525; 83735; 83880; 83970; G0103

== ENCOUNTER → 2024-12-19 | Outpatient (CLI) | payer MEDICARE, OTHER ==
[2024-12-19 12:00] LABS: C REACTIVE PROTEIN QUANTITATIV 0.96 MG/DL (<1.0)
[2024-12-19 12:01] LABS: ALBUMIN 3.7 G/DL (3.2-5.2); ALKALINE PHOSPHATASE 62 U/L (40-129); ALT/SGPT 47 U/L (7.0-40); AST/SGOT 18 U/L (<34); BILIRUBIN,TOTAL 0.6 MG/DL (0.3-1.2); BLOOD UREA NITROGEN 16 MG/DL (9-23); CARBON DIOXIDE LEVEL 27 MMOL/L (20-31); CHLORIDE LEVEL 107 MMOL/L (98-107); CHOLESTEROL LEVEL 145 MG/DL (<200); CHOLESTEROL RISK RATIO 2.73 (<5); CREATININE FOR GFR 0.92 MG/DL (0.70-1.30); GLOMERULAR FILTRATION RATE > 90.0 (>49); GLUCOSE, FASTING 99 MG/DL (74-106); LDL CHOLESTEROL 77.8 MG/DL (<100); POTASSIUM SERUM 4.7 MMOL/L (3.5-5.1); PTH INTACT 58.8 PG/ML (18.5-88.0); SODIUM LEVEL 143 MMOL/L (136-145); TOTAL 25(OH) VITAMIN D 45.4 NG/ML (20.0-100.0); TOTAL PROTEIN 6.5 G/DL (5.7-8.2); TRIGLYCERIDES LEVEL 71 MG/DL (<150)
[2024-12-19 12:22] LABS: HEMOGLOBIN A1c 5.4 % (4.0-6.0)
== END ==
LOC: M PLALAB 08:51
PROVIDERS: ATTEND Family Medicine
DX: I10 Essential (primary) hypertension (principal); R73.01 Impaired fasting glucose; E78.5 Hyperlipidemia, unspecified; E55.9 Vitamin D deficiency, unspecified; K76.0 Fatty (change of) liver, not elsewhere classified

== ENCOUNTER → 2025-03-29 | Outpatient (CLI) | payer MEDICARE, OTHER ==
[~2025-03-29] MED LIST changes: +DEPA250T PO; -DEPA250T2 PO; +DIVA-41 PO; -DIVA500T94 PO
== END ==
LOC: M SOG 06:47
PROVIDERS: ATTEND Orthopaedic Surgery
DX: Z96.641 Presence of right artificial hip joint (principal); Z47.1 Aftercare following joint replacement surgery

== ENCOUNTER → 2025-06-10 | Outpatient (CLI) | payer OTHER, MEDICARE ==
[2025-06-10 10:58] LABS: BASO # 0.1 10^3/uL (0.0-0.2); BASO % 1.1 % (0.0-1.0); EOS # 0.2 10^3/uL (0.0-0.5); EOS % 2.6 % (0.0-3.0); LYMPH # 2.2 10^3/uL (1.5-5.0); LYMPH % 33.7 % (24.0-44.0); MONO # 0.7 10^3/uL (0.0-0.8); MONO % 10.8 % (2.0-8.0); NEUTROPHILS # 3.4 10^3/uL (1.5-8.5); NEUTROPHILS % 51.6 % (36.0-66.0); PLATELET COUNT, AUTOMATED 291 10^3/uL (150-450); PSA SCREENING 2.76 NG/ML (< 4.00)
[2025-06-10 11:06] LABS: IRON (FE) 89.0 UG/DL (65-175); PERCENT SATURATION 27.0 % (19.7-50.0)
[2025-06-10 11:07] LABS: ALT/SGPT 35.0 U/L (7.0-40); AST/SGOT 20.0 U/L (<34); CALCIUM LEVEL 9.5 MG/DL (8.3-10.6); CARBON DIOXIDE LEVEL 30.0 MMOL/L (20-31); CHLORIDE LEVEL 106.0 MMOL/L (98-107); CHOLESTEROL LEVEL 176.0 MG/DL (<200); CHOLESTEROL RISK RATIO 3.21 (<5); CREATININE FOR GFR 1.11 MG/DL (0.70-1.30); GLOMERULAR FILTRATION RATE 72.8 (>49); LDL CHOLESTEROL 100.5 MG/DL (<100); NON-HDL-C 121.3 MG/DL; POTASSIUM SERUM 5.1 MMOL/L (3.5-5.1); SODIUM LEVEL 144.0 MMOL/L (136-145); TRIGLYCERIDES LEVEL 104.0 MG/DL (<150)
[2025-06-10 11:29] LABS: ESTIMATED AVERAGE GLUCOSE 120.0 MG/DL (60-110)
== END ==
LOC: M PLALAB 07:55
PROVIDERS: ATTEND Family Medicine
DX: I10 Essential (primary) hypertension (principal); Z12.5 Encounter for screening for malignant neoplasm of prostate; E78.5 Hyperlipidemia, unspecified; R73.01 Impaired fasting glucose